=== PATIENT | female | born 1955 | race American Indian/Alaskan Native ===

== ENCOUNTER 2020-04-02 15:00 | Inpatient (IN) | payer MEDICARE ==
--- NOTE | 2020-04-02 16:09 | History and Physical Report ---
GP History & Physical - History of Present Illness Date of admission: 04/02/20 Date of Examination: 04/02/20 Reason for Admission: Danger to self History of Present Illness: Per ED Provider: Patient is 64 years old female with history of bipolar disorder, diabetes, hypertension and hypothyroidism. Patient presented to the ER via EMS from home for evaluation of suicidal thoughts. Patient stated that she is going through a lot recently. Patient stated that she is dealing with chronic pain mainly in the back and stated that she is having a bulging disc and she has been taking methadone for many years and now they changed her to fentanyl and they supposed to do surgery on her because she has an open claim Medicaid refused to pay her surgery and she has been dismissed. Patient stated that she lost 2 family members to COVID-19 recently. Patient stated that her plan is to cut her abdomen open. Patient admitted that she is having auditory hallucination and the voices asking her to cut her abdomen. She also stated that she is seeing her abdomen open. Patient denied any homicidal ideation. Per [facility]: Pt. is a 64-year-old female who presents to Emergency Department for [facility]. Pt. has a history of Bipolar Disorder and depression. Pt. reports having Suicidal thoughts with a plan to cut self-due to experiencing a lot of back pain. Per pt., insurance will not pay for her to go to the pain clinic and she is suffering. According to pt., she is having command hallucinations and confusion. Pt. admits that the voices tell me to do things. cut myself again. Itll be all over. Pts daughter reports that pt. is displaying Depressive episodes, hopelessness, isolation, excessive crying, and change in mood. Pt. reports grieving the loss of two family members due to COVID19 and having a difficult time coping. Reports no current psychiatrist and therapist. Patient was discharged from [place] approximately one month ago and has been inconsistent with medi cations. Pt. has failed to follow up with outpatient recommendations. Pt. reports one previous suicide attempt via cutting hand. During assessment, pt. presented as being alert and oriented (self, situation, date) with impaired memory. Pt. presents as a poor historian with some information, therefore, dgt was contacted for COL information. PSYCH HPI Patient is a 64 year single Female with past psychiatric history of Depression and separation of anxiety who resides with family and presented to the ED with complaints of SI. Patients history of nerve problems, bulging disc and pinged nerve that has been causing her a lot of pain and discomfort and her outpt psychiatrist had told her that the pain she is experiencing phsyically could cross over to affect her mentally. Now patient reports feeling suicidal and not wanting to live anymore cos of being in so much discomfort. She endorses not being able to get appropriate care for the pain management due to medicaid insurance issues. PAST PSYCHIATRIC HISTORY Diagnoses: Bipolar and Depression. Suicide attempts or Self-harm behavior: denies Prior psychiatric hospitalizations: Yes Substance Abuse history: Denies Previous psychiatric medications tried: yes Outpatient treatment: yes PAST MEDICAL HISTORY: Sciatica, bulging disc, DM, HTN Family Psychiatric History: None reported or documented SOCIAL HISTORY Marital Status: Single Living Arrangements: with family Employment Status: Retired Access to guns/weapons: none reported Education: College degree History of Abuse: none reported Legal History: none reported REVIEW OF SYSTEMS Constitutional: Negative for weight loss ENT: Negative for stridor Respiratory: Negative for cough or hemoptysis All other systems reviewed and are negative MENTAL STATUS EXAMINATION General Appearance and Behavior: Age appropriate, good hygiene, wearing appropriate clothes, lying in bed, good eye contact, cooperative with questioning. Cooperation: Participating/engaged Psychomotor Behavior: unremarkable and within normal limits Mood: Depressed Affect and affective range: sad Thought Process: Fluent/Logical Thought Content: Within reality Speech: Normal volume, Regular rate and rhythm Intellectual Functioning: Average Suicidal Ideation: SI Homicidal Ideation: Denies HI Impulse Control: impaired Insight and Judgment: Normal insight and judgment Memory: Normal Attention: Normal Orientation: Alert, oriented Assessment and Plan - Psychiatric problem (1) MDD (major depressive disorder) Current Visit: Yes Status: Acute Treatment Plan Cymbalta started at 60mg QDAY, will help with neuralgia Patient will be admitted for inpatient psychiatric evaluation, medication adjustment and close monitoring The patient's behavior, mood, sleep and appetite will be closely monitored. Patient will be enrolled in individual and group therapeutic sessions and encouraged to attend. Patient will be provided with a safe and structured environment. Patient's physical health needs will be addressed by the Hospitalist. Hospitalist Consulted Labs including CBC, CMP, Lipid profile and Hemoglobin A1C ordered Social Assessment will be completed and the Inside Sales Advertising Executive will work with patient and family to ensure a suitable and safe disposition Medication adjustment will be made as clinically indicated Usual Wellness Confucianist/Preservation: - Start Trazodone 50 mg po QHS & 50 mg po QHS PRN between 10 PM & 2 AM for insomnia - Start Melatonin 5 mg po QHS to promote circadian rhythm - Start [place]-3 for brain health, reduce impulsivity, and as adjunctive treatment for mood disorder, continue upon discharge given overall benefits. - Start B1 prophylaxis with 200 mg po for 5 days The patient agreed on the treatment plan, understood the risk, benefit, alternative treatment, potential consequence of no treatment, and gave informed consent. Initial Certification Inpatient psych services: I certify that the inpatient psychiatric services are required for treatment that could reasonably be expected to improve the patient's condition. Estimated days: 7 Post hospital care: primary care provider, psychiatric provider Legal Status: Voluntary Reaction to Hospitalization: Accepting Physician Certification - Certification Statement Physician Certification Statement: This is an acknowledgement statement that CRISTHIAN GOODWIN is a 64 year old F who requires inpatient psychiatric admission for treatment which could reasonably be expected to improve the patient's condition for Estimated period of time patient will need to remain in the hospital: [ ] Plan for post-hospital care: [ ]
[2020-04-02] MEDS: ACETAMINOPHEN 325 MG TAB PO PRN (22:02)
[2020-04-02] MEDS: MELATONIN 5 MG TAB PO PRN (22:02)
[2020-04-02] MEDS: OMEGA-3 FATTY ACIDS/FISH OIL 1 GRAM CAP PO SCH (22:02)
[2020-04-02] MEDS: traZODone 50 MG TAB PO SCH (22:03)
--- NOTE | 2020-04-03 07:44 | Progress Note ---
Subjective Date of service: 04/03/20 Principal diagnosis: Major Depressive Disorder Subjective Comment: The patient's medical record was reviewed and the patient's progress was discussed with the nursing staff. The nurse note states she reports AH to harm herself by cutting stomach. She was mildly anxious but oriented to her medications and her self care. During my interview with the patient today, she is lying down. She is easily arouses. She is a/o x 3. The patient is calm and cooperative. She makes minimum eye contact. She verbalizes being "depressed and anxious." The patient also verbalizes suicidal thoughts, but denies a plan. She denies hallucinations of any kind during the interview. REVIEW OF SYSTEMS Constitutional: Negative for weight loss ENT: Negative for stridor Respiratory: Negative for cough or hemoptysis All other systems reviewed and are negative MENTAL STATUS EXAMINATION General Appearance; Dressed appropriately Behavior: Calm and cooperative. Poor eye contact Mood: Depressed and anxious Affect and affective range: sad Thought Process: Fluent/Logical Thought Content: Within reality Speech: Normal volume, Regular rate and rhythm Suicidal Ideation: SI Homicidal Ideation: Denies HI Hallucinations: Denies Delusions: None elicited Insight and Judgment: Limited Memory/Cognition: Normal Attention: Normal Orientation: Alert, oriented Assessment (1) MDD (major depressive disorder) Current Visit: Yes Status: Acute Treatment Plan Patient will be admitted for inpatient psychiatric evaluation, medication adjustment and close monitoring The patient's behavior, mood, sleep and appetite will be closely monitored. Patient will be enrolled in individual and group therapeutic sessions and encouraged to attend. Patient will be provided with a safe and structured environment. Patient's physical health needs will be addressed by the Hospitalist. Hospitalist Consulted Labs including CBC, CMP, Lipid profile and Hemoglobin A1C ordered Social Assessment will be completed and the Assistant Hall Director will work with patient and family to ensure a suitable and safe disposition Medication adjustment will be made as clinically indicated Start Abilify 5mg po daily to control hallucinations and treat depression Start Vistaril 25mg q6h prn anxiety Usual Wellness Anabaptism/Preservation: - Start Trazodone 50 mg po QHS & 50 mg po QHS PRN between 10 PM & 2 AM for insomnia - Start Melatonin 5 mg po QHS to promote circadian rhythm - Start [place]-3 for brain health, reduce impulsivity, and as adjunctive treatment for mood disorder, continue upon discharge given overall benefits. - Start B1 prophylaxis with 200 mg po for 5 days The patient agreed on the treatment plan, understood the risk, benefit, alternative treatment, potential consequence of no treatment, and gave informed consent. Estimated days: 6 Post hospital care: primary care provider, psychiatric provider Medications and Allergies Allergies Allergy/AdvReac Type Severity Reaction Status Date / Time azithromycin Allergy Itching Verified 04/02/20 17:24 ciprofloxacin Allergy Itching Verified 04/02/20 17:46 clindamycin Allergy Itching Verified 04/02/20 17:24 ketorolac Allergy Itching Verified 04/02/20 17:47 lisinopril Allergy Hives Verified 04/02/20 17:24 morphine Allergy Itching Verified 04/02/20 17:24 Penicillins Allergy Hives Verified 04/02/20 17:24 pentazocine Allergy Itching Verified 04/02/20 17:24 pregabalin Allergy Itching Verified 04/02/20 17:43 sulfamethoxazole Allergy Itching Verified 04/02/20 17:44 trimethoprim Allergy Itching Verified 04/02/20 17:45 Active Meds: Active Medications Acetaminophen (Tylenol) 650 mg PO Q4H PRN PRN Reason: Pain, Mild (1-3) Last Admin: 04/02/20 22:02 Dose: 650 mg Documented by: Duloxetine HCl (Cymbalta) 60 mg PO QDAY [facility] Fish Oil (Fish Oil) 2,000 mg PO BID [facility] Last Admin: 04/02/20 22:02 Dose: 2,000 mg Documented by: Melatonin (Melatonin) 5 mg PO QHS PRN PRN Reason: Sleep Last Admin: 04/02/20 22:02 Dose: 5 mg Documented by: Trazodone HCl (Desyrel) 50 mg PO QHS [facility] Last Admin: 04/02/20 22:03 Dose: 50 mg Documented by: Results - Results Labs/Vitals: Laboratory Last Values POC Glucose 194 (70-105) H 04/02/20 23:18 Last Vital Signs Temp 99.0 F 04/02/20 20:00 Pulse 90 04/02/20 20:00 Resp 20 04/02/20 20:00 BP 144/98 04/02/20 20:00 Pulse Ox 97 04/02/20 20:00
[2020-04-03] MEDS: DULoxetine 30 MG CAP PO SCH (09:19)
[2020-04-03] MEDS: OMEGA-3 FATTY ACIDS/FISH OIL 1 GRAM CAP PO SCH ×2 (09:20→21:25)
[2020-04-03] MEDS: ARIPiprazole 5 MG TAB PO SCH (09:20)
--- NOTE | 2020-04-03 09:44 | Progress Note ---
Subjective - Reason for Consult Consult date: 04/03/20 Reason for consult: AMS - Chief Complaint Chief complaint: REVIEW OF SYSTEMS Constitutional: Negative for weight loss ENT: Negative for stridor Respiratory: Negative for cough or hemoptysis All other systems reviewed and are negative MENTAL STATUS EXAMINATION General Appearance; Dressed appropriately Behavior: Calm and cooperative. Poor eye contact Mood: Depressed and anxious Affect and affective range: sad Thought Process: Fluent/Logical Thought Content: Within reality Speech: Normal volume, Regular rate and rhythm Suicidal Ideation: SI Homicidal Ideation: Denies HI Hallucinations: Denies Delusions: None elicited Insight and Judgment: Limited Memory/Cognition: Normal Attention: Normal Orientation: Alert, oriented Assessment (1) MDD (major depressive disorder) Current Visit: Yes Status: Acute Mental Status Exam - Vital signs Last Vital Signs Temp 99.0 F 04/02/20 20:00 Pulse 90 04/02/20 20:00 Resp 20 04/02/20 20:00 BP 144/98 04/02/20 20:00 Pulse Ox 97 04/02/20 20:00
[2020-04-03 12:34] LABS: Basophils # (Auto) 0.1 K/mm3 (0.0-0.1); Basophils % (Auto) 1.1 % (0.0-1.8); Eosinophils # (Auto) 0.1 K/mm3 (0.0-0.4); Eosinophils % (Auto) 1.2 % (0.0-4.3); Hematocrit 42.7 % (30.3-42.9); Hemoglobin 13.7 gm/dl (10.1-14.3); Lymphocytes # (Auto) 2.6 K/mm3 (1.2-5.4); Lymphocytes % (Auto) 29.5 % (13.4-35.0); Mean Corpuscular HGB Conc 32 % (30-34); Mean Corpuscular Volume 82 fl (79-97); Monocytes # (Auto) 0.6 K/mm3 (0.0-0.8); Monocytes % (Auto) 7.2 % (0.0-7.3); Red Blood Count 5.24 M/mm3 (3.65-5.03); Red Cell Distribution Width 14.9 % (13.2-15.2)
[2020-04-03 13:16] LABS: Platelet Count 170 K/mm3 (140-440)
[2020-04-03] MEDS: ACETAMINOPHEN 325 MG TAB PO PRN ×2 (13:20→21:24)
--- NOTE | 2020-04-03 13:26 | Consultation ---
History of Present Illness - Reason for Consult Consult date: 04/03/20 Requesting physician: RICARDA SUGGS - History of Present Illness Patient is a 64-year-old female with a history of diabetes hypertension bipolar disorder and depression presents to psychiatric facility with suicidal thoughts hallucinations. Patient had some social isolation issues secondary to the COVID-19 pandemic. At present patient answering questions appropriately sitting at the table. Explained to her that I will see her to evaluate her diabetes and her hypertension. Patient is well aware of the medications [facility] Gluc[facility] and the doses. Patient is aware her sugars have been a little high lately. States that stress is caused her sugars to be elevated. Patient denies any episodes of hypoglycemia. States that prior to this she has been fairly well controlled as well as fairly well compliant with medical management. Patient also gives a history of hypothyroidism but no symptoms of hypo-or hyperthyroidism. Past History Past Medical History: diabetes, hypertension, hypothyroidism, migraines, other (Chronic back pain.). denies: acute DE, atrial fib, arrhythmia, anemia, arthritis, CAD, cancer, COPD, dialysis, DVT, ESRD, GERD, heart failure, hepatitis, HIV/AIDS, liver disease, PVD, pulmonary embolism Past Surgical History: No surgical history Social history: single, lives with family. denies: smoking, alcohol abuse Family history: no significant family history Medications and Allergies Allergies Allergy/AdvReac Type Severity Reaction Status Date / Time azithromycin Allergy Itching Verified 04/02/20 17:24 ciprofloxacin Allergy Itching Verified 04/02/20 17:46 clindamycin Allergy Itching Verified 04/02/20 17:24 ketorolac Allergy Itching Verified 04/02/20 17:47 lisinopril Allergy Hives Verified 04/02/20 17:24 morphine Allergy Itching Verified 04/02/20 17:24 Penicillins Allergy Hives Verified 04/02/20 17:24 pentazocine Allergy Itching Verified 04/02/20 17:24 pregabalin Allergy Itching Verified 04/02/20 17:43 sulfamethoxazole Allergy Itching Verified 04/02/20 17:44 trimethoprim Allergy Itching Verified 04/02/20 17:45 Home Medications Medication Instructions Recorded Confirmed Last Taken Type Amlodipine Besylate [Norvasc] 5 mg PO DAILY 04/03/20 04/03/20 Unknown History Levothyroxine Sodium [Synthroid] 200 mcg PO DAILY 04/03/20 04/03/20 Unknown History Metoprolol Xl [Metoprolol 25 mg PO QDAY 04/03/20 04/03/20 Unknown History SUCCINATE ER TAB] QUEtiapine [SEROquel] 25 mg PO DAILY 04/03/20 04/03/20 Unknown History QUEtiapine [SEROquel] 125 mg PO HS 04/03/20 04/03/20 Unknown History glyBURIDE [Diabeta] 5 mg PO BID 04/03/20 04/03/20 Unknown History hydrOXYzine HCL [Atarax] 25 mg PO Q6HR PRN 04/03/20 04/03/20 Unknown History Active Meds: Active Medications Acetaminophen (Tylenol) 650 mg PO Q4H PRN PRN Reason: Pain, Mild (1-3) Last Admin: 04/03/20 13:20 Dose: 650 mg Documented by: Aripiprazole (Aripiprazole) 5 mg PO QDAY [facility] Last Admin: 04/03/20 09:20 Dose: 5 mg Documented by: Duloxetine HCl (Cymbalta) 60 mg PO QDAY [facility] Last Admin: 04/03/20 09:19 Dose: 60 mg Documented by: Fish Oil (Fish Oil) 2,000 mg PO BID [facility] Last Admin: 04/03/20 09:20 Dose: 2,000 mg Documented by: Hydroxyzine Pamoate (Vistaril) 25 mg PO Q6H PRN PRN Reason: Anxiety Melatonin (Melatonin) 5 mg PO QHS PRN PRN Reason: Sleep Last Admin: 04/02/20 22:02 Dose: 5 mg Documented by: Trazodone HCl (Desyrel) 50 mg PO QHS [facility] Last Admin: 04/02/20 22:03 Dose: 50 mg Documented by: Review of Systems Constitutional: fatigue, no weight loss, no weight gain, no fever, no chills, no sweats, no night sweats, no anorexia, no weakness, no malaise, no lethargy, no chronic headaches, no poor appetite, no daytime sleepiness Ears, nose, mouth and throat: no decreased hearing, no nasal discharge, no dental pain, no dysphagia, no sore throat, no swelling in mouth, no headache, no neck fullness/pressure Cardiovascular: no palpitations, no rapid/irregular heart beat, no edema, no lightheadedness, no shortness of breath, no dyspnea on exertion, no paroxysmal nocturnal dyspnea, no leg edema, no decreased exercise tolerance Respiratory: no excessive sputum, no shortness of breath Gastrointestinal: no diarrhea, no hematemesis, no lactose intolerance Genitourinary Female: no menorrhagia, no urgency, no decreased libido, no mood problems, no difficulties conceiving Menstruation: no premenarcheal, no ammenorrhea on BC, no period normal, no period spotting, no cycle > 35 days, no postmenopausal Rectal: no bleeding, no hemorrhoids, no discharge Musculoskeletal: low back pain, shooting leg pain, other (Chronic low back pain. States was on pain clinic.), no neck stiffness, no shooting arm pain, no leg numbness/tingling, no muscle cramps, no limitation of motion, no prior amputations Neurological: numbness, no head injury, no paralysis, no parathesias, no tingling, no syncope, no convulsions Psychiatric: anxiety, memory loss, change in sleep habits, insomnia, change in appetite, suicidal ideation, hopelessness Endocrine: no heat intolerance, no flushing, no weight change, no proptosis, no recent glucocorticoid use Exam - Constitutional Vitals: Temp Pulse Resp BP Pulse Ox 99.0 F 90 18 144/98 97 04/02/20 20:00 04/02/20 20:00 04/03/20 13:20 04/02/20 20:00 04/02/20 20:00 General appearance: Present: no acute distress, well-nourished - EENT Eyes: Present: PERRL ENT: hearing intact, clear oral mucosa - Neck Neck: Present: supple, normal ROM - Respiratory Respiratory effort: normal Respiratory: bilateral: CTA - Cardiovascular Heart Sounds: Present: S1 & S2. Absent: rub, click - Extremities Extremities: pulses symmetrical, No edema Peripheral Pulses: within normal limits - Abdominal General gastrointestinal: Present: soft, non-tender, non-distended, normal bowel sounds Female genitourinary: Present: normal - Integumentary Integumentary: Present: clear, warm, dry - Musculoskeletal Musculoskeletal: gait normal, strength equal bilaterally - Psychiatric Psychiatric: appropriate mood/affect, intact judgment & insight - Neurologic Neurologic: CNII-XII intact, moves all extremities Results - Labs CBC & Chem 7: 04/03/20 11:59 Labs: Abnormal lab results 04/02/20 04/03/20 04/03/20 Range/Units 23:18 11:52 11:59 RBC 5.24 H (3.65-5.03) M/mm3 MCH 26 L (28-32) pg POC Glucose 194 H 279 H (70-105) Hemoglobin A1c (4-6) % 04/03/20 Range/Units 11:59 RBC (3.65-5.03) M/mm3 MCH (28-32) pg POC Glucose (70-105) Hemoglobin A1c 10.9 H (4-6) % Assessment and Plan - Patient Problems (1) Diabetes 1.5, managed as type 1 Current Visit: Yes Status: Acute Plan to address problem: Patient with diabetes takes Trulicity. Will start patient on Accu-Cheks once daily. Unlikely will require sliding scale at this particular time. Will start patient back on glipizide 5 mg daily. Will hold Trulicity for now since it is once a week. (2) Hypertension Current Visit: Yes Status: Acute Plan to address problem: Patient fair control of blood pressure will restart lisinopril 5 mg daily. (3) Hypothyroidism (acquired) Current Visit: Yes Status: Acute Plan to address problem: Patient currently on Synthroid 50 mcg. Will reinitiate medical management. (4) Obesity (BMI 35.0-39.9 without comorbidity) Current Visit: Yes Status: Acute Plan to address problem: Did discuss but poor candidate to explain behavior modifications at this time. (5) Depression Current Visit: Yes Status: Acute Plan to address problem: Patient started on management per mental health.
[2020-04-03] MEDS ORDERED: hydrOXYzine HCL 25 MG TAB PO PRN (13:31)
[2020-04-03] MEDS ORDERED: glyBURIDE 5 MG TAB PO SCH (13:45)
[2020-04-03 14:18] LABS: Alanine Aminotransferase 55 units/L (7-56); Albumin 4.3 g/dL (3.9-5); BUN/Creatinine Ratio 14; Blood Urea Nitrogen 13 mg/dL (7-17); Calcium 9.9 mg/dL (8.4-10.2); HDL Cholesterol 58 mg/dL (40-59); Hemolysis Index 189; LDL Cholesterol,Direct 135 mg/dL (50-130)
[2020-04-03] MEDS: hydrOXYzine PAMOATE 25 MG CAP PO PRN (21:24)
[2020-04-03] MEDS: traZODone 50 MG TAB PO SCH (21:27)
[2020-04-04] MEDS ORDERED: LEVOTHYROXINE 100 MCG INJ IV SCH (06:00)
[2020-04-04] MEDS: LEVOTHYROXINE 100 MCG TAB PO SCH (07:05)
--- NOTE | 2020-04-04 07:54 | Progress Note ---
Subjective Date of service: 04/04/20 Principal diagnosis: Major Depressive Disorder Subjective Comment: The patient's medical record was reviewed and the patient's progress was discussed with the nursing staff. The nurse note states she was calm and cooperative with staff and interact well with peers. She was medications compliant, participate fully in groups. She verbalized being depressed and suicidal thoughts with no plan, she denies HI and avh. During my interview with the patient today, she is sitting in the dayroom. She is a/o x 3. The patient denies SI at present, but states late last night she was. She denies hallucinations of any kind. She describes her mood as "better." She is telling me what meds she takes and doesn't take. The patient states she doesn't take trazodone. She is also asking about her glyburide dose, pain med and protonix. Reason for continued inpatient treatment: The patient continues to have SI at times with most recent being late last night. REVIEW OF SYSTEMS Constitutional: Negative for weight loss ENT: Negative for stridor Respiratory: Negative for cough or hemoptysis All other systems reviewed and are negative MENTAL STATUS EXAMINATION General Appearance; Dressed appropriately Behavior: Calm and cooperative. Good eye contact Mood: Better Affect and affective range: Congruent with stated mood Thought Process: Fluent/Logical Thought Content: Within reality Speech: Normal volume, Regular rate and rhythm Suicidal Ideation: Denies at present, but last night Homicidal Ideation: Denies HI Hallucinations: Denies Delusions: None elicited Insight and Judgment: Limited Memory/Cognition: Normal Attention: Normal Orientation: Alert, oriented Assessment (1) MDD (major depressive disorder) Current Visit: Yes Status: Acute Treatment Plan Patient will be admitted for inpatient psychiatric evaluation, medication adjustment and close monitoring The patient's behavior, mood, sleep and appetite will be closely monitored. Patient will be enrolled in individual and group therapeutic sessions and encouraged to attend. Patient will be provided with a safe and structured environment. Patient's physical health needs will be addressed by the Hospitalist. Hospitalist Consulted Labs including CBC, CMP, Lipid profile and Hemoglobin A1C ordered Social Assessment will be completed and the Resource Engineer will work with patient and family to ensure a suitable and safe disposition Medication adjustment will be made as clinically indicated Started home dose of Seroquel 100mg po qhs D/C trazodone Started home protonix 40mg po daily, and Glyburide 5mg po BID Usual Wellness Spiritism/Preservation: - Start Trazodone 50 mg po QHS & 50 mg po QHS PRN between 10 PM & 2 AM for insomnia - Start Melatonin 5 mg po QHS to promote circadian rhythm - Start [place]-3 for brain health, reduce impulsivity, and as adjunctive treatment for mood disorder, continue upon discharge given overall benefits. - Start B1 prophylaxis with 200 mg po for 5 days The patient agreed on the treatment plan, understood the risk, benefit, alternative treatment, potential consequence of no treatment, and gave informed consent. Estimated days: 4 Post hospital care: primary care provider, psychiatric provider Medications and Allergies Allergies Allergy/AdvReac Type Severity Reaction Status Date / Time azithromycin Allergy Itching Verified 04/02/20 17:24 ciprofloxacin Allergy Itching Verified 04/02/20 17:46 clindamycin Allergy Itching Verified 04/02/20 17:24 ketorolac Allergy Itching Verified 04/02/20 17:47 lisinopril Allergy Hives Verified 04/02/20 17:24 morphine Allergy Itching Verified 04/02/20 17:24 Penicillins Allergy Hives Verified 04/02/20 17:24 pentazocine Allergy Itching Verified 04/02/20 17:24 pregabalin Allergy Itching Verified 04/02/20 17:43 sulfamethoxazole Allergy Itching Verified 04/02/20 17:44 trimethoprim Allergy Itching Verified 04/02/20 17:45 Home Medications Medication Instructions Recorded Confirmed Last Taken Type Amlodipine Besylate [Norvasc] 5 mg PO DAILY 04/03/20 04/03/20 Unknown History Levothyroxine Sodium [Synthroid] 200 mcg PO DAILY 04/03/20 04/03/20 Unknown History Metoprolol Xl [Metoprolol 25 mg PO QDAY 04/03/20 04/03/20 Unknown History SUCCINATE ER TAB] QUEtiapine [SEROquel] 25 mg PO DAILY 04/03/20 04/03/20 Unknown History QUEtiapine [SEROquel] 125 mg PO HS 04/03/20 04/03/20 Unknown History glyBURIDE [Diabeta] 5 mg PO BID 04/03/20 04/03/20 Unknown History hydrOXYzine HCL [Atarax] 25 mg PO Q6HR PRN 04/03/20 04/03/20 Unknown History Active Meds: Active Medications Acetaminophen (Tylenol) 650 mg PO Q4H PRN PRN Reason: Pain, Mild (1-3) Last Admin: 04/03/20 21:24 Dose: 650 mg Documented by: Amlodipine Besylate (Amlodipine) 5 mg PO DAILY [facility] Aripiprazole (Aripiprazole) 5 mg PO QDAY [facility] Last Admin: 04/03/20 09:20 Dose: 5 mg Documented by: Duloxetine HCl (Cymbalta) 60 mg PO QDAY [facility] Last Admin: 04/03/20 09:19 Dose: 60 mg Documented by: Fish Oil (Fish Oil) 2,000 mg PO BID [facility] Last Admin: 04/03/20 21:25 Dose: 2,000 mg Documented by: Glyburide (Diabeta) 5 mg PO BID [facility] Hydroxyzine HCl (Atarax) 25 mg PO Q6HR PRN PRN Reason: Itching Hydroxyzine Pamoate (Vistaril) 25 mg PO Q6H PRN PRN Reason: Anxiety Last Admin: 04/03/20 21:24 Dose: 25 mg Documented by: Levothyroxine Sodium (Synthroid) 200 mcg PO DAILY@0600 [facility] Last Admin: 04/04/20 07:05 Dose: 200 mcg Documented by: Melatonin (Melatonin) 5 mg PO QHS PRN PRN Reason: Sleep Last Admin: 04/02/20 22:02 Dose: 5 mg Documented by: Metoprolol Succinate (Metoprolol Xl) 25 mg PO QDAY [facility] Pantoprazole Sodium (Protonix) 40 mg PO QDAY [facility] Quetiapine Fumarate (Seroquel) 125 mg PO [facility] Results - Results Labs/Vitals: Laboratory Last Values WBC 8.9 K/mm3 (4.5-11.0) 04/03/20 11:59 RBC 5.24 M/mm3 (3.65-5.03) H 04/03/20 11:59 Hgb 13.7 gm/dl (10.1-14.3) 04/03/20 11:59 Hct 42.7 % (30.3-42.9) 04/03/20 11:59 MCV 82 fl (79-97) 04/03/20 11:59 MCH 26 pg (28-32) L 04/03/20 11:59 MCHC 32 % (30-34) 04/03/20 11:59 RDW 14.9 % (13.2-15.2) 04/03/20 11:59 Plt Count 170 K/mm3 (140-440) 04/03/20 11:59 Lymph % (Auto) 29.5 % (13.4-35.0) 04/03/20 11:59 [place] % (Auto) 7.2 % (0.0-7.3) 04/03/20 11:59 Eos % (Auto) 1.2 % (0.0-4.3) 04/03/20 11:59 Baso % (Auto) 1.1 % (0.0-1.8) 04/03/20 11:59 Lymph # 2.6 K/mm3 (1.2-5.4) 04/03/20 11:59 [place] # 0.6 K/mm3 (0.0-0.8) 04/03/20 11:59 Eos # 0.1 K/mm3 (0.0-0.4) 04/03/20 11:59 Baso # 0.1 K/mm3 (0.0-0.1) 04/03/20 11:59 Seg Neutrophils % 61.0 % (40.0-70.0) 04/03/20 11:59 Seg Neutrophils # 5.4 K/mm3 (1.8-7.7) 04/03/20 11:59 Sodium 139 mmol/L (137-145) 04/03/20 11:59 Potassium 5.3 mmol/L (3.6-5.0) H 04/03/20 11:59 Chloride 96.8 mmol/L (98-107) L 04/03/20 11:59 Carbon Dioxide 17 mmol/L (22-30) L 04/03/20 11:59 Anion Gap 31 mmol/L 04/03/20 11:59 BUN 13 mg/dL (7-17) 04/03/20 11:59 Creatinine 0.9 mg/dL (0.6-1.2) 04/03/20 11:59 Estimated GFR > 60 ml/min 04/03/20 11:59 BUN/Creatinine Ratio 14 % 04/03/20 11:59 Glucose 315 mg/dL (65-100) H 04/03/20 11:59 POC Glucose 286 (70-105) H 04/03/20 20:09 Hemoglobin A1c 10.9 % (4-6) H 04/03/20 11:59 Calcium 9.9 mg/dL (8.4-10.2) 04/03/20 11:59 Total Bilirubin 0.40 mg/dL (0.1-1.2) 04/03/20 11:59 AST 79 units/L (5-40) H 04/03/20 11:59 ALT 55 units/L (7-56) 04/03/20 11:59 Alkaline Phosphatase 175 units/L (35-129) H 04/03/20 11:59 Total Protein 9.3 g/dL (6.3-8.2) H 04/03/20 11:59 Albumin 4.3 g/dL (3.9-5) 04/03/20 11:59 Albumin/Globulin Ratio 0.9 % 04/03/20 11:59 Triglycerides 181 mg/dL (2-149) H 04/03/20 11:59 Cholesterol 209 mg/dL (50-199) H 04/03/20 11:59 LDL Cholesterol Direct 135 mg/dL (50-130) H 04/03/20 11:59 HDL Cholesterol 58 mg/dL (40-59) 04/03/20 11:59 Cholesterol/HDL Ratio 3.60 % 04/03/20 11:59 TSH 1.670 mlU/mL (0.270-4.200) 04/03/20 11:59 Last Vital Signs Temp 98.5 F 04/03/20 19:28 Pulse 95 H 04/03/20 19:28 Resp 18 04/03/20 19:28 BP 129/103 04/03/20 19:28 Pulse Ox 97 04/03/20 19:28
[2020-04-04] MEDS: DULoxetine 30 MG CAP PO SCH (09:53)
[2020-04-04] MEDS: PANTOPRAZOLE 40 MG TAB PO SCH (09:53)
[2020-04-04] MEDS: OMEGA-3 FATTY ACIDS/FISH OIL 1 GRAM CAP PO SCH ×2 (09:53→21:15)
[2020-04-04] MEDS: ARIPiprazole 5 MG TAB PO SCH (09:53)
[2020-04-04] MEDS: amLODIPine 5 MG TAB PO SCH (09:54)
[2020-04-04] MEDS: ACETAMINOPHEN 325 MG TAB PO PRN ×2 (09:55→17:24)
[2020-04-04] MEDS ORDERED: LEVOTHYROXINE SODIUM 200 MCG PO SCH (10:00)
[2020-04-04] MEDS: hydrOXYzine PAMOATE 25 MG CAP PO PRN (10:34)
[2020-04-04] MEDS: glyBURIDE 5 MG TAB PO SCH ×2 (10:55→21:15)
[2020-04-04] MEDS: METOPROLOL SUCCINATE XL 25 MG TAB PO SCH (10:55)
--- NOTE | 2020-04-04 12:14 | Progress Note ---
Assessment and Plan - Patient Problems (1) Diabetes 1.5, managed as type 1 Current Visit: Yes Status: Acute Plan to address problem: Patient blood sugar remains suboptimally controlled. Placed her back on her home dose of glyburide. Will add metformin today. Patient's blood sugar most likely suboptimal control because A1c was 10. We will continue sliding scale as well as add metformin 1000 mg daily. (2) Hypertension Current Visit: Yes Status: Acute Plan to address problem: Blood pressure appears to be fair but suboptimal control with lisinopril. Patient just started back on medications yesterday. If remains suboptimal will increase lisinopril from 20 to 40 mg. (3) Hypothyroidism (acquired) Current Visit: Yes Status: Acute Plan to address problem: Patient currently on Synthroid 50 mcg. Will reinitiate medical management. (4) Obesity (BMI 35.0-39.9 without comorbidity) Current Visit: Yes Status: Acute Plan to address problem: Did discuss but poor candidate to explain behavior modifications at this time. (5) Depression Current Visit: Yes Status: Acute Plan to address problem: Patient started on management per mental health. (6) Chronic pain Current Visit: Yes Status: Acute Plan to address problem: Patient actuall give history of going to pain management. She has pretty detailed history. Will attempt to treat patient's pain as this may help with her anxiety and depression. Patient states she is depressed because of pain chronic pain that is been suboptimally treated. Will start patient on oxycodone 3 times a day as needed (7) Chronic UTI Current Visit: Yes Status: Acute Plan to address problem: Patient was on Macrobid prophylaxis. Will reinitiate Macrobid. Subjective Date of service: 04/04/20 Principal diagnosis: Major Depressive Disorder hypertension diabetes chronic frank n. Interval history: Patient states today mentally she feels better. Much more alert. Able to carry on a conversation. Patient main concern now is her chronic pain. Patient states that this pain makes her anxiety worse. Gives a history that she was on methadone and no longer pay for methadone and then was on fentanyl patch. Objective - Constitutional Vitals: Vital Signs - 12hr 04/04/20 04/04/20 09:54 10:55 Pulse Rate 106 H 106 H Blood Pressure 143/88 143/88 General appearance: Present: no acute distress, well-nourished - EENT Eyes: PERRL, EOM intact ENT: hearing intact, clear oral mucosa Ears: bilateral: normal - Neck Neck: supple, normal ROM - Respiratory Respiratory effort: normal Respiratory: bilateral: CTA - Breasts Breasts: normal - Cardiovascular Rhythm: regular Heart Sounds: Present: S1 & S2. Absent: gallop, rub Extremities: pulses intact, No edema, normal color, Full ROM - Gastrointestinal General gastrointestinal: Present: soft, non-tender, non-distended, normal bowel sounds - Genitourinary Female genitourinary: normal - Integumentary Integumentary: clear, warm, dry - Musculoskeletal Musculoskeletal: 1, strength equal bilaterally - Neurologic Neurologic: moves all extremities - Psychiatric Psychiatric: memory intact, appropriate mood/affect, intact judgment & insight - Labs CBC & Chem 7: 04/03/20 11:59 04/03/20 11:59 Labs: Abnormal lab results 04/03/20 04/03/20 04/03/20 Range/Units 11:59 11:59 11:59 RBC 5.24 H (3.65-5.03) M/mm3 MCH 26 L (28-32) pg Potassium 5.3 H (3.6-5.0) mmol/L Chloride 96.8 L (98-107) mmol/L Carbon Dioxide 17 L (22-30) mmol/L Glucose 315 H (65-100) mg/dL POC Glucose (70-105) Hemoglobin A1c 10.9 H (4-6) % AST 79 H (5-40) units/L Alkaline Phosphatase 175 H (35-129) units/L Total Protein 9.3 H (6.3-8.2) g/dL Triglycerides 181 H (2-149) mg/dL Cholesterol 209 H (50-199) mg/dL LDL Cholesterol Direct 135 H (50-130) mg/dL 04/03/20 04/03/20 04/04/20 Range/Units 16:34 20:09 08:08 RBC (3.65-5.03) M/mm3 MCH (28-32) pg Potassium (3.6-5.0) mmol/L Chloride (98-107) mmol/L Carbon Dioxide (22-30) mmol/L Glucose (65-100) mg/dL POC Glucose 296 H 286 H 241 H (70-105) Hemoglobin A1c (4-6) % AST (5-40) units/L Alkaline Phosphatase (35-129) units/L Total Protein (6.3-8.2) g/dL Triglycerides (2-149) mg/dL Cholesterol (50-199) mg/dL LDL Cholesterol Direct (50-130) mg/dL 04/04/20 Range/Units 12:07 RBC (3.65-5.03) M/mm3 MCH (28-32) pg Potassium (3.6-5.0) mmol/L Chloride (98-107) mmol/L Carbon Dioxide (22-30) mmol/L Glucose (65-100) mg/dL POC Glucose 259 H (70-105) Hemoglobin A1c (4-6) % AST (5-40) units/L Alkaline Phosphatase (35-129) units/L Total Protein (6.3-8.2) g/dL Triglycerides (2-149) mg/dL Cholesterol (50-199) mg/dL LDL Cholesterol Direct (50-130) mg/dL
[2020-04-04] MEDS: NITROFURANTOIN MONOHYD/M-CRYST 100 MG CAP PO SCH ×2 (12:30→21:15)
[2020-04-04] MEDS: oxyCODONE /ACETAMINOPHEN 5-325MG TAB PO PRN ×2 (12:30→20:04)
[2020-04-04] MEDS: metFORMIN XR 500MG TAB PO SCH (12:31)
[2020-04-04] MEDS: MELATONIN 5 MG TAB PO PRN (20:37)
[2020-04-04] MEDS: QUEtiapine 25 MG TAB PO SCH (21:15)
[2020-04-05] MEDS: LEVOTHYROXINE 100 MCG TAB PO SCH (05:24)
--- NOTE | 2020-04-05 08:59 | Progress Note ---
Subjective Date of service: 04/05/20 Principal diagnosis: Major Depressive Disorder hypertension diabetes chronic pain. Subjective Comment: The patient's medical record was reviewed and the patient's progress was discussed with the nursing staff. During my interview with the patient today, she is sitting in the dayroom. She is a/o x 3. She is calm and cooperative. She is pleasant. She describes her mood as "pretty good at the moment." The patient says she's been experiencing some tremors of her hand. She holds her hands up to show me. She denies SI/HI at present, but still states "they seem to come and go." She denies hallucinations of any kind. Reason for continued inpatient treatment: The patient has improved, but still suicidal thoughts on and off. Will continue to stabilize and plan for a safe discharge. REVIEW OF SYSTEMS Constitutional: Negative for weight loss ENT: Negative for stridor Respiratory: Negative for cough or hemoptysis All other systems reviewed and are negative MENTAL STATUS EXAMINATION General Appearance; Dressed appropriately Behavior: Calm and cooperative. Good eye contact Mood: "pretty good" Affect and affective range: Congruent with stated mood Thought Process: Fluent/Logical Thought Content: Within reality Speech: Normal volume, Regular rate and rhythm Suicidal Ideation: Denies at present, comes and goes Homicidal Ideation: Denies HI Hallucinations: Denies Delusions: None elicited Insight and Judgment: Limited Memory/Cognition: Normal Attention: Normal Orientation: Alert, oriented Assessment (1) MDD (major depressive disorder) Current Visit: Yes Status: Acute Treatment Plan Patient will be admitted for inpatient psychiatric evaluation, medication adjustment and close monitoring The patient's behavior, mood, sleep and appetite will be closely monitored. Patient will be enrolled in individual and group therapeutic sessions and encouraged to attend. Patient will be provided with a safe and structured environment. Patient's physical health needs will be addressed by the Hospitalist. Hospitalist Consulted Labs including CBC, CMP, Lipid profile and Hemoglobin A1C ordered Social Assessment will be completed and the Sampling Expert will work with patient and family to ensure a suitable and safe disposition Medication adjustment will be made as clinically indicated No changes, continue to stabilize on current regimen Usual Wellness Yazidism/Preservation: - Start Trazodone 50 mg po QHS & 50 mg po QHS PRN between 10 PM & 2 AM for insomnia - Start Melatonin 5 mg po QHS to promote circadian rhythm - Start [place]-3 for brain health, reduce impulsivity, and as adjunctive treatment for mood disorder, continue upon discharge given overall benefits. - Start B1 prophylaxis with 200 mg po for 5 days The patient agreed on the treatment plan, understood the risk, benefit, alternative treatment, potential consequence of no treatment, and gave informed consent. Estimated days: 2 Post hospital care: primary care provider, psychiatric provider Medications and Allergies Allergies Allergy/AdvReac Type Severity Reaction Status Date / Time azithromycin Allergy Itching Verified 04/02/20 17:24 ciprofloxacin Allergy Itching Verified 04/02/20 17:46 clindamycin Allergy Itching Verified 04/02/20 17:24 ketorolac Allergy Itching Verified 04/02/20 17:47 lisinopril Allergy Hives Verified 04/02/20 17:24 morphine Allergy Itching Verified 04/02/20 17:24 Penicillins Allergy Hives Verified 04/02/20 17:24 pentazocine Allergy Itching Verified 04/02/20 17:24 pregabalin Allergy Itching Verified 04/02/20 17:43 sulfamethoxazole Allergy Itching Verified 04/02/20 17:44 trimethoprim Allergy Itching Verified 04/02/20 17:45 Home Medications Medication Instructions Recorded Confirmed Last Taken Type Amlodipine Besylate [Norvasc] 5 mg PO DAILY 04/03/20 04/03/20 Unknown History Levothyroxine Sodium [Synthroid] 200 mcg PO DAILY 04/03/20 04/03/20 Unknown History Metoprolol Xl [Metoprolol 25 mg PO QDAY 04/03/20 04/03/20 Unknown History SUCCINATE ER TAB] QUEtiapine [SEROquel] 25 mg PO DAILY 04/03/20 04/03/20 Unknown History QUEtiapine [SEROquel] 125 mg PO HS 04/03/20 04/03/20 Unknown History glyBURIDE [Diabeta] 5 mg PO BID 04/03/20 04/03/20 Unknown History hydrOXYzine HCL [Atarax] 25 mg PO Q6HR PRN 04/03/20 04/03/20 Unknown History Active Meds: Active Medications Acetaminophen (Tylenol) 650 mg PO Q4H PRN PRN Reason: Pain, Mild (1-3) Last Admin: 04/04/20 17:24 Dose: 650 mg Documented by: Amlodipine Besylate (Amlodipine) 5 mg PO DAILY [facility] Last Admin: 04/04/20 09:54 Dose: 5 mg Documented by: Aripiprazole (Aripiprazole) 5 mg PO QDAY [facility] Last Admin: 04/04/20 09:53 Dose: 5 mg Documented by: Duloxetine HCl (Cymbalta) 60 mg PO QDAY [facility] Last Admin: 04/04/20 09:53 Dose: 60 mg Documented by: Fish Oil (Fish Oil) 2,000 mg PO BID [facility] Last Admin: 04/04/20 21:15 Dose: 2,000 mg Documented by: Glyburide (Diabeta) 5 mg PO BID [facility] Last Admin: 04/04/20 21:15 Dose: 5 mg Documented by: Hydroxyzine HCl (Atarax) 25 mg PO Q6HR PRN PRN Reason: Itching Hydroxyzine Pamoate (Vistaril) 25 mg PO Q6H PRN PRN Reason: Anxiety Last Admin: 04/04/20 10:34 Dose: 25 mg Documented by: Levothyroxine Sodium (Synthroid) 200 mcg PO DAILY@0600 [facility] Last Admin: 04/05/20 05:24 Dose: 200 mcg Documented by: Melatonin (Melatonin) 5 mg PO QHS PRN PRN Reason: Sleep Last Admin: 04/02/20 22:02 Dose: 5 mg Documented by: Metformin HCl (Glucophage Xr) 1,000 mg PO QDDIAB [facility] Last Admin: 04/04/20 12:31 Dose: 1,000 mg Documented by: Metoprolol Succinate (Metoprolol Xl) 25 mg PO QDAY [facility] Last Admin: 04/04/20 10:55 Dose: 25 mg Documented by: Nitrofurantoin Macrocrystals (Macrobid) 100 mg PO Q12HR [facility] Last Admin: 04/04/20 21:15 Dose: 100 mg Documented by: Oxycodone/Acetaminophen (Percocet 5/325) 1 tab PO Q6H PRN PRN Reason: Pain, Moderate (4-6) Last Admin: 04/04/20 20:04 Dose: 1 tab Documented by: Pantoprazole Sodium (Protonix) 40 mg PO QDAY [facility] Last Admin: 04/04/20 09:53 Dose: 40 mg Documented by: Quetiapine Fumarate (Seroquel) 125 mg PO [facility] Last Admin: 04/04/20 21:15 Dose: 125 mg Documented by: Results - Results Labs/Vitals: Laboratory Last Values WBC 8.9 K/mm3 (4.5-11.0) 04/03/20 11:59 RBC 5.24 M/mm3 (3.65-5.03) H 04/03/20 11:59 Hgb 13.7 gm/dl (10.1-14.3) 04/03/20 11:59 Hct 42.7 % (30.3-42.9) 04/03/20 11:59 MCV 82 fl (79-97) 04/03/20 11:59 MCH 26 pg (28-32) L 04/03/20 11:59 MCHC 32 % (30-34) 04/03/20 11:59 RDW 14.9 % (13.2-15.2) 04/03/20 11:59 Plt Count 170 K/mm3 (140-440) 04/03/20 11:59 Lymph % (Auto) 29.5 % (13.4-35.0) 04/03/20 11:59 [place] % (Auto) 7.2 % (0.0-7.3) 04/03/20 11:59 Eos % (Auto) 1.2 % (0.0-4.3) 04/03/20 11:59 Baso % (Auto) 1.1 % (0.0-1.8) 04/03/20 11:59 Lymph # 2.6 K/mm3 (1.2-5.4) 04/03/20 11:59 [place] # 0.6 K/mm3 (0.0-0.8) 04/03/20 11:59 Eos # 0.1 K/mm3 (0.0-0.4) 04/03/20 11:59 Baso # 0.1 K/mm3 (0.0-0.1) 04/03/20 11:59 Seg Neutrophils % 61.0 % (40.0-70.0) 04/03/20 11:59 Seg Neutrophils # 5.4 K/mm3 (1.8-7.7) 04/03/20 11:59 Sodium 139 mmol/L (137-145) 04/03/20 11:59 Potassium 5.3 mmol/L (3.6-5.0) H 04/03/20 11:59 Chloride 96.8 mmol/L (98-107) L 04/03/20 11:59 Carbon Dioxide 17 mmol/L (22-30) L 04/03/20 11:59 Anion Gap 31 mmol/L 04/03/20 11:59 BUN 13 mg/dL (7-17) 04/03/20 11:59 Creatinine 0.9 mg/dL (0.6-1.2) 04/03/20 11:59 Estimated GFR > 60 ml/min 04/03/20 11:59 BUN/Creatinine Ratio 14 % 04/03/20 11:59 Glucose 315 mg/dL (65-100) H 04/03/20 11:59 POC Glucose 189 (70-105) H 04/05/20 06:33 Hemoglobin A1c 10.9 % (4-6) H 04/03/20 11:59 Calcium 9.9 mg/dL (8.4-10.2) 04/03/20 11:59 Total Bilirubin 0.40 mg/dL (0.1-1.2) 04/03/20 11:59 AST 79 units/L (5-40) H 04/03/20 11:59 ALT 55 units/L (7-56) 04/03/20 11:59 Alkaline Phosphatase 175 units/L (35-129) H 04/03/20 11:59 Total Protein 9.3 g/dL (6.3-8.2) H 04/03/20 11:59 Albumin 4.3 g/dL (3.9-5) 04/03/20 11:59 Albumin/Globulin Ratio 0.9 % 04/03/20 11:59 Triglycerides 181 mg/dL (2-149) H 04/03/20 11:59 Cholesterol 209 mg/dL (50-199) H 04/03/20 11:59 LDL Cholesterol Direct 135 mg/dL (50-130) H 04/03/20 11:59 HDL Cholesterol 58 mg/dL (40-59) 04/03/20 11:59 Cholesterol/HDL Ratio 3.60 % 04/03/20 11:59 TSH 1.670 mlU/mL (0.270-4.200) 04/03/20 11:59 Last Vital Signs Temp 99.0 F 04/04/20 22:00 Pulse 83 09/12/20 22:00 Resp 16 04/04/20 22:00 BP 131/92 04/04/20 22:00 Pulse Ox 96 04/04/20 22:00
[2020-04-05] MEDS: PANTOPRAZOLE 40 MG TAB PO SCH (09:10)
[2020-04-05] MEDS: DULoxetine 30 MG CAP PO SCH (09:10)
[2020-04-05] MEDS: ARIPiprazole 5 MG TAB PO SCH (09:11)
[2020-04-05] MEDS: metFORMIN XR 500MG TAB PO SCH (09:11)
[2020-04-05] MEDS: OMEGA-3 FATTY ACIDS/FISH OIL 1 GRAM CAP PO SCH ×2 (09:11→21:13)
[2020-04-05] MEDS: NITROFURANTOIN MONOHYD/M-CRYST 100 MG CAP PO SCH ×2 (09:11→21:14)
[2020-04-05] MEDS: amLODIPine 5 MG TAB PO SCH (09:11)
[2020-04-05] MEDS: METOPROLOL SUCCINATE XL 25 MG TAB PO SCH (09:12)
[2020-04-05] MEDS: glyBURIDE 5 MG TAB PO SCH ×2 (09:13→20:51)
[2020-04-05] MEDS: oxyCODONE /ACETAMINOPHEN 5-325MG TAB PO PRN ×2 (09:13→18:43)
[2020-04-05] MEDS: ACETAMINOPHEN 325 MG TAB PO PRN (13:39)
[2020-04-05] MEDS: QUEtiapine 25 MG TAB PO SCH (21:13)
[2020-04-06] MEDS: LEVOTHYROXINE 100 MCG TAB PO SCH (06:14)
[2020-04-06] MEDS: oxyCODONE /ACETAMINOPHEN 5-325MG TAB PO PRN ×3 (06:41→21:27)
[2020-04-06] MEDS: glyBURIDE 5 MG TAB PO SCH ×2 (08:12→16:54)
[2020-04-06] MEDS: metFORMIN XR 500MG TAB PO SCH (08:14)
--- NOTE | 2020-04-06 09:37 | Progress Note ---
Subjective Date of service: 04/06/20 Principal diagnosis: Major Depressive Disorder hypertension diabetes chronic pain. Subjective Comment: The patient's medical record was reviewed and the patient's progress was discussed with the nursing staff. During my interview with the patient today, she is sitting in the dayroom. She is a/ x 3. She verbalized her mood being "better." The patient states she's in "a lot of pain." She says, "that's what makes me think about hurting myself." She denies SI/HI at the moment, but states it "comes and goes with the paint." She denies hallucinations of any kind. Reason for continued inpatient treatment: The patient has improved, but still suicidal thoughts on and off. Will continue to stabilize and plan for a safe discharge. REVIEW OF SYSTEMS Constitutional: Negative for weight loss ENT: Negative for stridor Respiratory: Negative for cough or hemoptysis All other systems reviewed and are negative MENTAL STATUS EXAMINATION General Appearance; Dressed appropriately Behavior: Calm and cooperative. Good eye contact Mood: "pretty good" Affect and affective range: Congruent with stated mood Thought Process: Fluent/Logical Thought Content: Within reality Speech: Normal volume, Regular rate and rhythm Suicidal Ideation: Denies at present, comes and goes Homicidal Ideation: Denies HI Hallucinations: Denies Delusions: None elicited Insight and Judgment: Limited Memory/Cognition: Normal Attention: Normal Orientation: Alert, oriented Assessment (1) MDD (major depressive disorder) Current Visit: Yes Status: Acute Treatment Plan Patient will be admitted for inpatient psychiatric evaluation, medication adjustment and close monitoring The patient's behavior, mood, sleep and appetite will be closely monitored. Patient will be enrolled in individual and group therapeutic sessions and encouraged to attend. Patient will be provided with a safe and structured environment. Patient's physical health needs will be addressed by the Hospitalist. Hospitalist Consulted Labs including CBC, CMP, Lipid profile and Hemoglobin A1C ordered Social Assessment will be completed and the Communications Equipment Installer will work with patient and family to ensure a suitable and safe disposition Medication adjustment will be made as clinically indicated Increased Cymbalta 60mg po BID to help with underlying depression and pain Usual Wellness Yazidism/Preservation: - Start Trazodone 50 mg po QHS & 50 mg po QHS PRN between 10 PM & 2 AM for in somnia - Start Melatonin 5 mg po QHS to promote circadian rhythm - Start [place]-3 for brain health, reduce impulsivity, and as adjunctive treatment for mood disorder, continue upon discharge given overall benefits. - Start B1 prophylaxis with 200 mg po for 5 days The patient agreed on the treatment plan, understood the risk, benefit, alternative treatment, potential consequence of no treatment, and gave informed consent. Estimated days: 2 Post hospital care: primary care provider, psychiatric provider Medications and Allergies Allergies Allergy/AdvReac Type Severity Reaction Status Date / Time azithromycin Allergy Itching Verified 04/02/20 17:24 ciprofloxacin Allergy Itching Verified 04/02/20 17:46 clindamycin Allergy Itching Verified 04/02/20 17:24 ketorolac Allergy Itching Verified 04/02/20 17:47 lisinopril Allergy Hives Verified 04/02/20 17:24 morphine Allergy Itching Verified 04/02/20 17:24 Penicillins Allergy Hives Verified 04/02/20 17:24 pentazocine Allergy Itching Verified 04/02/20 17:24 pregabalin Allergy Itching Verified 04/02/20 17:43 sulfamethoxazole Allergy Itching Verified 04/02/20 17:44 trimethoprim Allergy Itching Verified 04/02/20 17:45 Home Medications Medication Instructions Recorded Confirmed Last Taken Type Amlodipine Besylate [Norvasc] 5 mg PO DAILY 04/03/20 04/03/20 Unknown History Levothyroxine Sodium [Synthroid] 200 mcg PO DAILY 04/03/20 04/03/20 Unknown History Metoprolol Xl [Metoprolol 25 mg PO QDAY 04/03/20 04/03/20 Unknown History SUCCINATE ER TAB] QUEtiapine [SEROquel] 25 mg PO DAILY 04/03/20 04/03/20 Unknown History QUEtiapine [SEROquel] 125 mg PO HS 04/03/20 04/03/20 Unknown History glyBURIDE [Diabeta] 5 mg PO BID 04/03/20 04/03/20 Unknown History hydrOXYzine HCL [Atarax] 25 mg PO Q6HR PRN 04/03/20 04/03/20 Unknown History Active Meds: Active Medications Acetaminophen (Tylenol) 650 mg PO Q4H PRN PRN Reason: Pain, Mild (1-3) Last Admin: 04/05/20 13:39 Dose: 650 mg Documented by: Amlodipine Besylate (Amlodipine) 5 mg PO DAILY [facility] Last Admin: 04/05/20 09:11 Dose: 5 mg Documented by: Aripiprazole (Aripiprazole) 5 mg PO QDAY [facility] Last Admin: 04/05/20 09:11 Dose: 5 mg Documented by: Duloxetine HCl (Cymbalta) 60 mg PO QDAY [facility] Last Admin: 04/05/20 09:10 Dose: 60 mg Documented by: Fish Oil (Fish Oil) 2,000 mg PO BID [facility] Last Admin: 04/05/20 21:13 Dose: 2,000 mg Documented by: Glyburide (Diabeta) 5 mg PO BIDDIAB [facility] Last Admin: 04/06/20 08:12 Dose: 5 mg Documented by: Hydroxyzine Pamoate (Vistaril) 25 mg PO Q6H PRN PRN Reason: Anxiety Last Admin: 04/04/20 10:34 Dose: 25 mg Documented by: Levothyroxine Sodium (Synthroid) 200 mcg PO DAILY@0600 [facility] Last Admin: 04/06/20 06:14 Dose: 200 mcg Documented by: Melatonin (Melatonin) 5 mg PO QHS PRN PRN Reason: Sleep Last Admin: 04/02/20 22:02 Dose: 5 mg Documented by: Metformin HCl (Glucophage Xr) 1,000 mg PO QDDIAB [facility] Last Admin: 04/06/20 08:14 Dose: Not Given Documented by: Metoprolol Succinate (Metoprolol Xl) 25 mg PO QDAY [facility] Last Admin: 04/05/20 09:12 Dose: 25 mg Documented by: Nitrofurantoin Macrocrystals (Macrobid) 100 mg PO Q12HR [facility] Last Admin: 04/05/20 21:14 Dose: 100 mg Documented by: Oxycodone/Acetaminophen (Percocet 5/325) 1 tab PO Q6H PRN PRN Reason: Pain, Moderate (4-6) Last Admin: 04/06/20 06:41 Dose: 1 tab Documented by: Pantoprazole Sodium (Protonix) 40 mg PO QDAY [facility] Last Admin: 04/05/20 09:10 Dose: 40 mg Documented by: Quetiapine Fumarate (Seroquel) 125 mg PO [facility] Last Admin: 04/05/20 21:13 Dose: 125 mg Documented by: Results - Results Labs/Vitals: Laboratory Last Values WBC 8.9 K/mm3 (4.5-11.0) 04/03/20 11:59 RBC 5.24 M/mm3 (3.65-5.03) H 04/03/20 11:59 Hgb 13.7 gm/dl (10.1-14.3) 04/03/20 11:59 Hct 42.7 % (30.3-42.9) 04/03/20 11:59 MCV 82 fl (79-97) 04/03/20 11:59 MCH 26 pg (28-32) L 04/03/20 11:59 MCHC 32 % (30-34) 04/03/20 11:59 RDW 14.9 % (13.2-15.2) 04/03/20 11:59 Plt Count 170 K/mm3 (140-440) 04/03/20 11:59 Lymph % (Auto) 29.5 % (13.4-35.0) 04/03/20 11:59 [place] % (Auto) 7.2 % (0.0-7.3) 04/03/20 11:59 Eos % (Auto) 1.2 % (0.0-4.3) 04/03/20 11:59 Baso % (Auto) 1.1 % (0.0-1.8) 04/03/20 11:59 Lymph # 2.6 K/mm3 (1.2-5.4) 04/03/20 11:59 [place] # 0.6 K/mm3 (0.0-0.8) 04/03/20 11:59 Eos # 0.1 K/mm3 (0.0-0.4) 04/03/20 11:59 Baso # 0.1 K/mm3 (0.0-0.1) 04/03/20 11:59 Seg Neutrophils % 61.0 % (40.0-70.0) 04/03/20 11:59 Seg Neutrophils # 5.4 K/mm3 (1.8-7.7) 04/03/20 11:59 Sodium 139 mmol/L (137-145) 04/03/20 11:59 Potassium 5.3 mmol/L (3.6-5.0) H 04/03/20 11:59 Chloride 96.8 mmol/L (98-107) L 04/03/20 11:59 Carbon Dioxide 17 mmol/L (22-30) L 04/03/20 11:59 Anion Gap 31 mmol/L 04/03/20 11:59 BUN 13 mg/dL (7-17) 04/03/20 11:59 Creatinine 0.9 mg/dL (0.6-1.2) 04/03/20 11:59 Estimated GFR > 60 ml/min 04/03/20 11:59 BUN/Creatinine Ratio 14 % 04/03/20 11:59 Glucose 315 mg/dL (65-100) H 04/03/20 11:59 POC Glucose 159 (70-105) H 04/06/20 06:49 Hemoglobin A1c 10.9 % (4-6) H 04/03/20 11:59 Calcium 9.9 mg/dL (8.4-10.2) 04/03/20 11:59 Total Bilirubin 0.40 mg/dL (0.1-1.2) 04/03/20 11:59 AST 79 units/L (5-40) H 04/03/20 11:59 ALT 55 units/L (7-56) 04/03/20 11:59 Alkaline Phosphatase 175 units/L (35-129) H 04/03/20 11:59 Total Protein 9.3 g/dL (6.3-8.2) H 04/03/20 11:59 Albumin 4.3 g/dL (3.9-5) 04/03/20 11:59 Albumin/Globulin Ratio 0.9 % 04/03/20 11:59 Triglycerides 181 mg/dL (2-149) H 04/03/20 11:59 Cholesterol 209 mg/dL (50-199) H 04/03/20 11:59 LDL Cholesterol Direct 135 mg/dL (50-130) H 04/03/20 11:59 HDL Cholesterol 58 mg/dL (40-59) 04/03/20 11:59 Cholesterol/HDL Ratio 3.60 % 04/03/20 11:59 TSH 1.670 mlU/mL (0.270-4.200) 04/03/20 11:59 Last Vital Signs Temp 99.2 F 04/05/20 19:28 Pulse 81 04/05/20 19:28 Resp 20 04/05/20 19:28 BP 151/81 04/05/20 19:28 Pulse Ox 99 04/05/20 19:28
[2020-04-06] MEDS: NITROFURANTOIN MONOHYD/M-CRYST 100 MG CAP PO SCH ×2 (10:00→21:26)
[2020-04-06] MEDS: OMEGA-3 FATTY ACIDS/FISH OIL 1 GRAM CAP PO SCH ×2 (10:00→21:26)
[2020-04-06] MEDS: ARIPiprazole 5 MG TAB PO SCH (10:00)
[2020-04-06] MEDS: amLODIPine 5 MG TAB PO SCH (10:00)
[2020-04-06] MEDS: DULoxetine 30 MG CAP PO SCH ×2 (10:00→21:26)
[2020-04-06] MEDS: PANTOPRAZOLE 40 MG TAB PO SCH (10:01)
[2020-04-06] MEDS: METOPROLOL SUCCINATE XL 25 MG TAB PO SCH (10:01)
[2020-04-06] MEDS: QUEtiapine 25 MG TAB PO SCH (21:26)
[2020-04-07] MEDS: LEVOTHYROXINE 100 MCG TAB PO SCH (06:12)
--- NOTE | 2020-04-07 08:04 | Progress Note ---
Subjective Date of service: 04/07/20 Principal diagnosis: Major Depressive Disorder hypertension diabetes chronic pain. Subjective Comment: The patient's medical record was reviewed and the patient's progress was discussed with the nursing staff. During my interview with the patient today, she is sitting in the dayroom. She is a/ x 3. She verbalized her mood being "better." The patient states she's in "a lot of pain." She says, "that's what makes me think about hurting myself." She denies SI/HI at the moment, but states it "comes and goes with the paint." She denies hallucinations of any kind. Reason for continued inpatient treatment: The patient has improved, but still suicidal thoughts on and off. Will continue to stabilize and plan for a safe discharge. REVIEW OF SYSTEMS Constitutional: Negative for weight loss ENT: Negative for stridor Respiratory: Negative for cough or hemoptysis All other systems reviewed and are negative MENTAL STATUS EXAMINATION General Appearance; Dressed appropriately Behavior: Calm and cooperative. Good eye contact Mood: "pretty good" Affect and affective range: Congruent with stated mood Thought Process: Fluent/Logical Thought Content: Within reality Speech: Normal volume, Regular rate and rhythm Suicidal Ideation: Denies at present, comes and goes Homicidal Ideation: Denies HI Hallucinations: Denies Delusions: None elicited Insight and Judgment: Limited Memory/Cognition: Normal Attention: Normal Orientation: Alert, oriented Assessment (1) MDD (major depressive disorder) Current Visit: Yes Status: Acute Treatment Plan Patient will be admitted for inpatient psychiatric evaluation, medication adjustment and close monitoring The patient's behavior, mood, sleep and appetite will be closely monitored. Patient will be enrolled in individual and group therapeutic sessions and encouraged to attend. Patient will be provided with a safe and structured environment. Patient's physical health needs will be addressed by the Hospitalist. Hospitalist Consulted Labs including CBC, CMP, Lipid profile and Hemoglobin A1C ordered Social Assessment will be completed and the Supervisor Pre Wave will work with patient and family to ensure a suitable and safe disposition Medication adjustment will be made as clinically indicated Increased Cymbalta 60mg po BID to help with underlying depression and pain Usual Wellness Christian/Preservation: - Start Trazodone 50 mg po QHS & 50 mg po QHS PRN between 10 PM & 2 AM for in somnia - Start Melatonin 5 mg po QHS to promote circadian rhythm - Start [place]-3 for brain health, reduce impulsivity, and as adjunctive treatment for mood disorder, continue upon discharge given overall benefits. - Start B1 prophylaxis with 200 mg po for 5 days The patient agreed on the treatment plan, understood the risk, benefit, alternative treatment, potential consequence of no treatment, and gave informed consent. Estimated days: 2 Post hospital care: primary care provider, psychiatric provider Medications and Allergies Allergies Allergy/AdvReac Type Severity Reaction Status Date / Time azithromycin Allergy Itching Verified 04/02/20 17:24 ciprofloxacin Allergy Itching Verified 04/02/20 17:46 clindamycin Allergy Itching Verified 04/02/20 17:24 ketorolac Allergy Itching Verified 04/02/20 17:47 lisinopril Allergy Hives Verified 04/02/20 17:24 morphine Allergy Itching Verified 04/02/20 17:24 Penicillins Allergy Hives Verified 04/02/20 17:24 pentazocine Allergy Itching Verified 04/02/20 17:24 pregabalin Allergy Itching Verified 04/02/20 17:43 sulfamethoxazole Allergy Itching Verified 04/02/20 17:44 trimethoprim Allergy Itching Verified 04/02/20 17:45 Home Medications Medication Instructions Recorded Confirmed Last Taken Type Amlodipine Besylate [Norvasc] 5 mg PO DAILY 04/03/20 04/03/20 Unknown History Levothyroxine Sodium [Synthroid] 200 mcg PO DAILY 04/03/20 04/03/20 Unknown History Metoprolol Xl [Metoprolol 25 mg PO QDAY 04/03/20 04/03/20 Unknown History SUCCINATE ER TAB] QUEtiapine [SEROquel] 25 mg PO DAILY 04/03/20 04/03/20 Unknown History QUEtiapine [SEROquel] 125 mg PO HS 04/03/20 04/03/20 Unknown History glyBURIDE [Diabeta] 5 mg PO BID 04/03/20 04/03/20 Unknown History hydrOXYzine HCL [Atarax] 25 mg PO Q6HR PRN 04/03/20 04/03/20 Unknown History Active Meds: Active Medications Acetaminophen (Tylenol) 650 mg PO Q4H PRN PRN Reason: Pain, Mild (1-3) Last Admin: 04/05/20 13:39 Dose: 650 mg Documented by: Amlodipine Besylate (Amlodipine) 5 mg PO DAILY [facility] Last Admin: 04/06/20 10:00 Dose: 5 mg Documented by: Aripiprazole (Aripiprazole) 5 mg PO QDAY [facility] Last Admin: 04/06/20 10:00 Dose: 5 mg Documented by: Duloxetine HCl (Cymbalta) 60 mg PO BID [facility] Last Admin: 04/06/20 21:26 Dose: 60 mg Documented by: Fish Oil (Fish Oil) 2,000 mg PO BID [facility] Last Admin: 04/06/20 21:26 Dose: 2,000 mg Documented by: Glyburide (Diabeta) 5 mg PO BIDDIAB [facility] Last Admin: 04/06/20 16:54 Dose: 5 mg Documented by: Hydroxyzine Pamoate (Vistaril) 25 mg PO Q6H PRN PRN Reason: Anxiety Last Admin: 04/04/20 10:34 Dose: 25 mg Documented by: Levothyroxine Sodium (Synthroid) 200 mcg PO DAILY@0600 [facility] Last Admin: 04/07/20 06:12 Dose: 200 mcg Documented by: Melatonin (Melatonin) 5 mg PO QHS PRN PRN Reason: Sleep Last Admin: 04/02/20 22:02 Dose: 5 mg Documented by: Metformin HCl (Glucophage Xr) 1,000 mg PO QDDIAB [facility] Last Admin: 04/06/20 08:14 Dose: Not Given Documented by: Metoprolol Succinate (Metoprolol Xl) 25 mg PO QDAY [facility] Last Admin: 04/06/20 10:01 Dose: 25 mg Documented by: Nitrofurantoin Macrocrystals (Macrobid) 100 mg PO Q12HR [facility] Last Admin: 04/06/20 21:26 Dose: 100 mg Documented by: Oxycodone/Acetaminophen (Percocet 5/325) 1 tab PO Q6H PRN PRN Reason: Pain, Moderate (4-6) Last Admin: 04/06/20 21:27 Dose: 1 tab Documented by: Pantoprazole Sodium (Protonix) 40 mg PO QDAY [facility] Last Admin: 04/06/20 10:01 Dose: 40 mg Documented by: Quetiapine Fumarate (Seroquel) 125 mg PO [facility] Last Admin: 04/06/20 21:26 Dose: 125 mg Documented by: Results - Results Labs/Vitals: Laboratory Last Values WBC 8.9 K/mm3 (4.5-11.0) 04/03/20 11:59 RBC 5.24 M/mm3 (3.65-5.03) H 04/03/20 11:59 Hgb 13.7 gm/dl (10.1-14.3) 04/03/20 11:59 Hct 42.7 % (30.3-42.9) 04/03/20 11:59 MCV 82 fl (79-97) 04/03/20 11:59 MCH 26 pg (28-32) L 04/03/20 11:59 MCHC 32 % (30-34) 04/03/20 11:59 RDW 14.9 % (13.2-15.2) 04/03/20 11:59 Plt Count 170 K/mm3 (140-440) 04/03/20 11:59 Lymph % (Auto) 29.5 % (13.4-35.0) 04/03/20 11:59 [place] % (Auto) 7.2 % (0.0-7.3) 04/03/20 11:59 Eos % (Auto) 1.2 % (0.0-4.3) 04/03/20 11:59 Baso % (Auto) 1.1 % (0.0-1.8) 04/03/20 11:59 Lymph # 2.6 K/mm3 (1.2-5.4) 04/03/20 11:59 [place] # 0.6 K/mm3 (0.0-0.8) 04/03/20 11:59 Eos # 0.1 K/mm3 (0.0-0.4) 04/03/20 11:59 Baso # 0.1 K/mm3 (0.0-0.1) 04/03/20 11:59 Seg Neutrophils % 61.0 % (40.0-70.0) 04/03/20 11:59 Seg Neutrophils # 5.4 K/mm3 (1.8-7.7) 04/03/20 11:59 Sodium 139 mmol/L (137-145) 04/03/20 11:59 Potassium 5.3 mmol/L (3.6-5.0) H 04/03/20 11:59 Chloride 96.8 mmol/L (98-107) L 04/03/20 11:59 Carbon Dioxide 17 mmol/L (22-30) L 04/03/20 11:59 Anion Gap 31 mmol/L 04/03/20 11:59 BUN 13 mg/dL (7-17) 04/03/20 11:59 Creatinine 0.9 mg/dL (0.6-1.2) 04/03/20 11:59 Estimated GFR > 60 ml/min 04/03/20 11:59 BUN/Creatinine Ratio 14 % 04/03/20 11:59 Glucose 315 mg/dL (65-100) H 04/03/20 11:59 POC Glucose 162 (70-105) H 04/07/20 07:32 Hemoglobin A1c 10.9 % (4-6) H 04/03/20 11:59 Calcium 9.9 mg/dL (8.4-10.2) 04/03/20 11:59 Total Bilirubin 0.40 mg/dL (0.1-1.2) 04/03/20 11:59 AST 79 units/L (5-40) H 04/03/20 11:59 ALT 55 units/L (7-56) 04/03/20 11:59 Alkaline Phosphatase 175 units/L (35-129) H 04/03/20 11:59 Total Protein 9.3 g/dL (6.3-8.2) H 04/03/20 11:59 Albumin 4.3 g/dL (3.9-5) 04/03/20 11:59 Albumin/Globulin Ratio 0.9 % 04/03/20 11:59 Triglycerides 181 mg/dL (2-149) H 04/03/20 11:59 Cholesterol 209 mg/dL (50-199) H 04/03/20 11:59 LDL Cholesterol Direct 135 mg/dL (50-130) H 04/03/20 11:59 HDL Cholesterol 58 mg/dL (40-59) 04/03/20 11:59 Cholesterol/HDL Ratio 3.60 % 04/03/20 11:59 TSH 1.670 mlU/mL (0.270-4.200) 04/03/20 11:59 Last Vital Signs Temp 98.7 F 04/07/20 07:17 Pulse 92 H 04/07/20 07:17 Resp 18 04/07/20 07:17 BP 126/72 04/07/20 07:17 Pulse Ox 95 04/07/20 07:17
--- NOTE | 2020-04-07 08:08 | Progress Note ---
Subjective Date of service: 04/07/20 Principal diagnosis: Major Depressive Disorder hypertension diabetes chronic pain. Subjective Comment: The patient's medical record was reviewed and the patient's progress was discussed with the nursing staff. During my interview with the patient today, she is sitting in the dayroom. She is a/ x 3. She is calm and cooperative. She is asking about her zanaflex. The patient states she "needs it to help with my pain." She denies hallucinations of any kind. She also denies SI/HI at present. She states "not right now, I feel okay. Before it was because of the pain." She then says, "like I told them before, it seems to come and go." Reason for continued inpatient treatment: The patient has improved significantly. Will continue to stabilize on current medication regiment and plan for a safe discharge tomorrow. REVIEW OF SYSTEMS Constitutional: Negative for weight loss ENT: Negative for stridor Respiratory: Negative for cough or hemoptysis All other systems reviewed and are negative MENTAL STATUS EXAMINATION General Appearance; Dressed appropriately Behavior: Calm and cooperative. Good eye contact Mood: "pretty good" Affect and affective range: Congruent with stated mood Thought Process: Fluent/Logical Thought Content: Within reality Speech: Normal volume, Regular rate and rhythm Suicidal Ideation: Denies at present, comes and goes Homicidal Ideation: Denies HI Hallucinations: Denies Delusions: None elicited Insight and Judgment: Limited Memory/Cognition: Normal Attention: Normal Orientation: Alert, oriented Assessment (1) MDD (major depressive disorder) Current Visit: Yes Status: Acute Treatment Plan Patient will be admitted for inpatient psychiatric evaluation, medication adjustment and close monitoring The patient's behavior, mood, sleep and appetite will be closely monitored. Patient will be enrolled in individual and group therapeutic sessions and encouraged to attend. Patient will be provided with a safe and structured environment. Patient's physical health needs will be addressed by the Hospitalist. Hospitalist Consulted Labs including CBC, CMP, Lipid profile and Hemoglobin A1C ordered Social Assessment will be completed and the Clam Shucker will work with patient and family to ensure a suitable and safe disposition Medication adjustment will be made as clinically indicated Increased Cymbalta 60mg po BID to help with underlying depression and pain yesterday Started Zanaflex 4mg po BID prn muscle spasms Usual Wellness Advent/Preservation: - Start Trazodone 50 mg po QHS & 50 mg po QHS PRN between 10 PM & 2 AM for insomnia - Start Melatonin 5 mg po QHS to promote circadian rhythm - Start [place]-3 for brain health, reduce impulsivity, and as adjunctive treatment for mood disorder, continue upon discharge given overall benefits. - Start B1 prophylaxis with 200 mg po for 5 days The patient agreed on the treatment plan, understood the risk, benefit, alternative treatment, potential consequence of no treatment, and gave informed consent. Estimated days: 1 Post hospital care: primary care provider, psychiatric provider Medications and Allergies Allergies Allergy/AdvReac Type Severity Reaction Status Date / Time azithromycin Allergy Itching Verified 04/02/20 17:24 ciprofloxacin Allergy Itching Verified 04/02/20 17:46 clindamycin Allergy Itching Verified 04/02/20 17:24 ketorolac Allergy Itching Verified 04/02/20 17:47 lisinopril Allergy Hives Verified 04/02/20 17:24 morphine Allergy Itching Verified 04/02/20 17:24 Penicillins Allergy Hives Verified 04/02/20 17:24 pentazocine Allergy Itching Verified 04/02/20 17:24 pregabalin Allergy Itching Verified 04/02/20 17:43 sulfamethoxazole Allergy Itching Verified 04/02/20 17:44 trimethoprim Allergy Itching Verified 04/02/20 17:45 Home Medications Medication Instructions Recorded Confirmed Last Taken Type Amlodipine Besylate [Norvasc] 5 mg PO DAILY 04/03/20 04/03/20 Unknown History Levothyroxine Sodium [Synthroid] 200 mcg PO DAILY 04/03/20 04/03/20 Unknown History Metoprolol Xl [Metoprolol 25 mg PO QDAY 04/03/20 04/03/20 Unknown History SUCCINATE ER TAB] QUEtiapine [SEROquel] 25 mg PO DAILY 04/03/20 04/03/20 Unknown History QUEtiapine [SEROquel] 125 mg PO HS 04/03/20 04/03/20 Unknown History glyBURIDE [Diabeta] 5 mg PO BID 04/03/20 04/03/20 Unknown History hydrOXYzine HCL [Atarax] 25 mg PO Q6HR PRN 04/03/20 04/03/20 Unknown History Active Meds: Active Medications Acetaminophen (Tylenol) 650 mg PO Q4H PRN PRN Reason: Pain, Mild (1-3) Last Admin: 04/05/20 13:39 Dose: 650 mg Documented by: Amlodipine Besylate (Amlodipine) 5 mg PO DAILY [facility] Last Admin: 04/06/20 10:00 Dose: 5 mg Documented by: Aripiprazole (Aripiprazole) 5 mg PO QDAY [facility] Last Admin: 04/06/20 10:00 Dose: 5 mg Documented by: Duloxetine HCl (Cymbalta) 60 mg PO BID [facility] Last Admin: 04/06/20 21:26 Dose: 60 mg Documented by: Fish Oil (Fish Oil) 2,000 mg PO BID [facility] Last Admin: 04/06/20 21:26 Dose: 2,000 mg Documented by: Glyburide (Diabeta) 5 mg PO BIDDIAB [facility] Last Admin: 04/06/20 16:54 Dose: 5 mg Documented by: Hydroxyzine Pamoate (Vistaril) 25 mg PO Q6H PRN PRN Reason: Anxiety Last Admin: 04/04/20 10:34 Dose: 25 mg Documented by: Levothyroxine Sodium (Synthroid) 200 mcg PO DAILY@0600 [facility] Last Admin: 04/07/20 06:12 Dose: 200 mcg Documented by: Melatonin (Melatonin) 5 mg PO QHS PRN PRN Reason: Sleep Last Admin: 04/02/20 22:02 Dose: 5 mg Documented by: Metformin HCl (Glucophage Xr) 1,000 mg PO QDDIAB [facility] Last Admin: 04/06/20 08:14 Dose: Not Given Documented by: Metoprolol Succinate (Metoprolol Xl) 25 mg PO QDAY [facility] Last Admin: 04/06/20 10:01 Dose: 25 mg Documented by: Nitrofurantoin Macrocrystals (Macrobid) 100 mg PO Q12HR [facility] Last Admin: 04/06/20 21:26 Dose: 100 mg Documented by: Oxycodone/Acetaminophen (Percocet 5/325) 1 tab PO Q6H PRN PRN Reason: Pain, Moderate (4-6) Last Admin: 04/06/20 21:27 Dose: 1 tab Documented by: Pantoprazole Sodium (Protonix) 40 mg PO QDAY [facility] Last Admin: 04/06/20 10:01 Dose: 40 mg Documented by: Quetiapine Fumarate (Seroquel) 125 mg PO [facility] Last Admin: 04/06/20 21:26 Dose: 125 mg Documented by: Results - Results Labs/Vitals: Laboratory Last Values WBC 8.9 K/mm3 (4.5-11.0) 04/03/20 11:59 RBC 5.24 M/mm3 (3.65-5.03) H 04/03/20 11:59 Hgb 13.7 gm/dl (10.1-14.3) 04/03/20 11:59 Hct 42.7 % (30.3-42.9) 04/03/20 11:59 MCV 82 fl (79-97) 04/03/20 11:59 MCH 26 pg (28-32) L 04/03/20 11:59 MCHC 32 % (30-34) 04/03/20 11:59 RDW 14.9 % (13.2-15.2) 04/03/20 11:59 Plt Count 170 K/mm3 (140-440) 04/03/20 11:59 Lymph % (Auto) 29.5 % (13.4-35.0) 04/03/20 11:59 [place] % (Auto) 7.2 % (0.0-7.3) 04/03/20 11:59 Eos % (Auto) 1.2 % (0.0-4.3) 04/03/20 11:59 Baso % (Auto) 1.1 % (0.0-1.8) 04/03/20 11:59 Lymph # 2.6 K/mm3 (1.2-5.4) 04/03/20 11:59 [place] # 0.6 K/mm3 (0.0-0.8) 04/03/20 11:59 Eos # 0.1 K/mm3 (0.0-0.4) 04/03/20 11:59 Baso # 0.1 K/mm3 (0.0-0.1) 04/03/20 11:59 Seg Neutrophils % 61.0 % (40.0-70.0) 04/03/20 11:59 Seg Neutrophils # 5.4 K/mm3 (1.8-7.7) 04/03/20 11:59 Sodium 139 mmol/L (137-145) 04/03/20 11:59 Potassium 5.3 mmol/L (3.6-5.0) H 04/03/20 11:59 Chloride 96.8 mmol/L (98-107) L 04/03/20 11:59 Carbon Dioxide 17 mmol/L (22-30) L 04/03/20 11:59 Anion Gap 31 mmol/L 04/03/20 11:59 BUN 13 mg/dL (7-17) 04/03/20 11:59 Creatinine 0.9 mg/dL (0.6-1.2) 04/03/20 11:59 Estimated GFR > 60 ml/min 04/03/20 11:59 BUN/Creatinine Ratio 14 % 04/03/20 11:59 Glucose 315 mg/dL (65-100) H 04/03/20 11:59 POC Glucose 162 (70-105) H 04/07/20 07:32 Hemoglobin A1c 10.9 % (4-6) H 04/03/20 11:59 Calcium 9.9 mg/dL (8.4-10.2) 04/03/20 11:59 Total Bilirubin 0.40 mg/dL (0.1-1.2) 04/03/20 11:59 AST 79 units/L (5-40) H 04/03/20 11:59 ALT 55 units/L (7-56) 04/03/20 11:59 Alkaline Phosphatase 175 units/L (35-129) H 04/03/20 11:59 Total Protein 9.3 g/dL (6.3-8.2) H 04/03/20 11:59 Albumin 4.3 g/dL (3.9-5) 04/03/20 11:59 Albumin/Globulin Ratio 0.9 % 04/03/20 11:59 Triglycerides 181 mg/dL (2-149) H 04/03/20 11:59 Cholesterol 209 mg/dL (50-199) H 04/03/20 11:59 LDL Cholesterol Direct 135 mg/dL (50-130) H 04/03/20 11:59 HDL Cholesterol 58 mg/dL (40-59) 04/03/20 11:59 Cholesterol/HDL Ratio 3.60 % 04/03/20 11:59 TSH 1.670 mlU/mL (0.270-4.200) 04/03/20 11:59 Last Vital Signs Temp 98.7 F 04/07/20 07:17 Pulse 92 H 04/07/20 07:17 Resp 18 04/07/20 07:17 BP 126/72 04/07/20 07:17 Pulse Ox 95 04/07/20 07:17
[2020-04-07] MEDS: oxyCODONE /ACETAMINOPHEN 5-325MG TAB PO PRN ×2 (08:12→18:44)
[2020-04-07] MEDS: glyBURIDE 5 MG TAB PO SCH ×2 (08:12→16:40)
[2020-04-07] MEDS: metFORMIN XR 500MG TAB PO SCH (08:15)
[2020-04-07] MEDS: METOPROLOL SUCCINATE XL 25 MG TAB PO SCH (09:08)
[2020-04-07] MEDS: DULoxetine 30 MG CAP PO SCH ×2 (09:08→21:29)
[2020-04-07] MEDS: ARIPiprazole 5 MG TAB PO SCH (09:09)
[2020-04-07] MEDS: PANTOPRAZOLE 40 MG TAB PO SCH (09:09)
[2020-04-07] MEDS: OMEGA-3 FATTY ACIDS/FISH OIL 1 GRAM CAP PO SCH ×2 (09:09→21:29)
[2020-04-07] MEDS: amLODIPine 5 MG TAB PO SCH (09:09)
[2020-04-07] MEDS: NITROFURANTOIN MONOHYD/M-CRYST 100 MG CAP PO SCH ×2 (09:09→21:29)
[2020-04-07] MEDS: tiZANidine TAB 4 MG TAB PO PRN (13:48)
[2020-04-07] MEDS: QUEtiapine 25 MG TAB PO SCH (21:29)
[2020-04-08] MEDS: tiZANidine TAB 4 MG TAB PO PRN ×2 (03:02→18:59)
[2020-04-08] MEDS: LEVOTHYROXINE 100 MCG TAB PO SCH (05:37)
--- NOTE | 2020-04-08 08:12 | Discharge Summary ---
Providers - Providers Date of Admission: 04/02/20 21:15 Date of discharge: 04/08/20 Attending physician: MACARIO LIMA MD 04/02/20 16:03 Consult to Physician [CONS] Routine Comment: Consulting Provider: JORDAN BRAXTON Physician Instructions: Reason For Exam: medical management Primary care physician: [employer] Hospitalization Reason for admission: SI Admitting Diagnosis: F33.2 - MAJOR DEPRESSV DISORDER, RECURRENT SEVERE W/O PSYCH FEATURES Hospital course: The patient was provided inpatient psychiatric treatment with safe and supportive care, medication adjustment, adverse effect monitoring, medical evaluations, medical treatments, assessment and psycho-education. The patient's mood, cognition, behavior, moral support are improved and stabilized. St the time of discharge, the patient had no endangering behavior and no debilitating adverse effects. The patient agreed on potential consequences of no treatment and gave informed consent. Disposition: DC-01 TO HOME OR SELFCARE Time spent for discharge: 38 Allergies/Adverse Reactions: Allergies azithromycin Allergy (Verified 04/02/20 17:24) Itching ciprofloxacin Allergy (Verified 04/02/20 17:46) Itching [ FROM CIPRO] clindamycin Allergy (Verified 04/02/20 17:24) Itching ketorolac Allergy (Verified 04/02/20 17:47) Itching [ FROM TORADOL] lisinopril Allergy (Verified 04/02/20 17:24) Hives morphine Allergy (Verified 04/02/20 17:24) Itching Penicillins Allergy (Verified 04/02/20 17:24) Hives pentazocine Allergy (Verified 04/02/20 17:24) Itching [ FROM TALWIN] pregabalin Allergy (Verified 04/02/20 17:43) Itching [ FROM LYRICA] sulfamethoxazole Allergy (Verified 04/02/20 17:44) Itching [ FROM BACTRIM] trimethoprim Allergy (Verified 04/02/20 17:45) Itching [ FROM BACTRIM] Vital Signs: Last Vital Signs Temp 99.0 F 04/07/20 19:43 Pulse 79 04/07/20 19:43 Resp 16 04/07/20 19:43 BP 136/82 04/07/20 19:43 Pulse Ox 98 04/07/20 19:43 Last Lab: Laboratory Last Values WBC 8.9 K/mm3 (4.5-11.0) 04/03/20 11:59 RBC 5.24 M/mm3 (3.65-5.03) H 04/03/20 11:59 Hgb 13.7 gm/dl (10.1-14.3) 04/03/20 11:59 Hct 42.7 % (30.3-42.9) 04/03/20 11:59 MCV 82 fl (79-97) 04/03/20 11:59 MCH 26 pg (28-32) L 04/03/20 11:59 MCHC 32 % (30-34) 04/03/20 11:59 RDW 14.9 % (13.2-15.2) 04/03/20 11:59 Plt Count 170 K/mm3 (140-440) 04/03/20 11:59 Lymph % (Auto) 29.5 % (13.4-35.0) 04/03/20 11:59 [place] % (Auto) 7.2 % (0.0-7.3) 04/03/20 11:59 Eos % (Auto) 1.2 % (0.0-4.3) 04/03/20 11:59 Baso % (Auto) 1.1 % (0.0-1.8) 04/03/20 11:59 Lymph # 2.6 K/mm3 (1.2-5.4) 04/03/20 11:59 [place] # 0.6 K/mm3 (0.0-0.8) 04/03/20 11:59 Eos # 0.1 K/mm3 (0.0-0.4) 04/03/20 11:59 Baso # 0.1 K/mm3 (0.0-0.1) 04/03/20 11:59 Seg Neutrophils % 61.0 % (40.0-70.0) 04/03/20 11:59 Seg Neutrophils # 5.4 K/mm3 (1.8-7.7) 04/03/20 11:59 Sodium 139 mmol/L (137-145) 04/03/20 11:59 Potassium 5.3 mmol/L (3.6-5.0) H 04/03/20 11:59 Chloride 96.8 mmol/L (98-107) L 04/03/20 11:59 Carbon Dioxide 17 mmol/L (22-30) L 04/03/20 11:59 Anion Gap 31 mmol/L 04/03/20 11:59 BUN 13 mg/dL (7-17) 04/03/20 11:59 Creatinine 0.9 mg/dL (0.6-1.2) 04/03/20 11:59 Estimated GFR > 60 ml/min 04/03/20 11:59 BUN/Creatinine Ratio 14 % 04/03/20 11:59 Glucose 315 mg/dL (65-100) H 04/03/20 11:59 POC Glucose 220 (70-105) H 04/08/20 07:53 Hemoglobin A1c 10.9 % (4-6) H 04/03/20 11:59 Calcium 9.9 mg/dL (8.4-10.2) 04/03/20 11:59 Total Bilirubin 0.40 mg/dL (0.1-1.2) 04/03/20 11:59 AST 79 units/L (5-40) H 04/03/20 11:59 ALT 55 units/L (7-56) 04/03/20 11:59 Alkaline Phosphatase 175 units/L (35-129) H 04/03/20 11:59 Total Protein 9.3 g/dL (6.3-8.2) H 04/03/20 11:59 Albumin 4.3 g/dL (3.9-5) 04/03/20 11:59 Albumin/Globulin Ratio 0.9 % 04/03/20 11:59 Triglycerides 181 mg/dL (2-149) H 04/03/20 11:59 Cholesterol 209 mg/dL (50-199) H 04/03/20 11:59 LDL Cholesterol Direct 135 mg/dL (50-130) H 04/03/20 11:59 HDL Cholesterol 58 mg/dL (40-59) 04/03/20 11:59 Cholesterol/HDL Ratio 3.60 % 04/03/20 11:59 TSH 1.670 mlU/mL (0.270-4.200) 04/03/20 11:59 Core Measure Documentation - Palliative Care Palliative Care/ Comfort Measures: Not Applicable - Core Measures Any of the following diagnoses?: none Exam - Constitutional Vitals: Temp Pulse Resp BP Pulse Ox 99.0 F 79 16 136/82 98 04/07/20 19:43 04/07/20 19:43 04/07/20 19:43 04/07/20 19:43 04/07/20 19:43 General appearance: Present: no acute distress - EENT Eyes: Present: PERRL, EOM intact ENT: hearing intact, clear oral mucosa - Neck Neck: Present: supple, normal ROM - Respiratory Respiratory effort: normal Plan Activity: advance as tolerated Weight Bearing Status: Weight Bear as Tolerated Care Plan Goals: maintain good and stable mental health Plan of Treatment: The patient should be compliant with medications, not to use drugs, and not to drink alcohol. The patient understands that if suicidal ideas, homicidal ideas or any endangering feeling arise, the patient should seek assistance including, but not limited to crisis hotline, and emergency room. Health Concerns: DM Assessment: Major Depressive Disorder, Severe w/o Psychotic Features At the the time of assessment, the patient was calm and cooperative. She denies SI/HI or hallucinations of any kind. Follow up with: PRIMARY CARE, [Primary Care Provider] - 7 Days Prescriptions: ARIPiprazole 5 mg PO QDAY #30 tablet DULoxetine [Cymbalta] 60 mg PO BID #60 capsule [place]-3 Fatty Acids/Fish Oil [Fish Oil] 2,000 mg PO BID #120 capsule metFORMIN XR [Glucophage XR] 1,000 mg PO QDDIAB #60 tablet Pantoprazole [Protonix TAB] 40 mg PO QDAY #30 tablet hydrOXYzine PAMOATE [Vistaril] 25 mg PO BID PRN #60 capsule PRN Reason: Anxiety tiZANidine [Zanaflex 4mg TAB] 4 mg PO BID PRN #60 tablet PRN Reason: Muscle Spasm
[2020-04-08] MEDS: DULoxetine 30 MG CAP PO SCH (10:32)
[2020-04-08] MEDS: NITROFURANTOIN MONOHYD/M-CRYST 100 MG CAP PO SCH (10:32)
[2020-04-08] MEDS: ARIPiprazole 5 MG TAB PO SCH (10:32)
[2020-04-08] MEDS: amLODIPine 5 MG TAB PO SCH (10:32)
[2020-04-08] MEDS: metFORMIN XR 500MG TAB PO SCH ×2 (10:33→13:55)
[2020-04-08] MEDS: oxyCODONE /ACETAMINOPHEN 5-325MG TAB PO PRN ×2 (10:33→15:49)
[2020-04-08 10:34] VITALS: BP 125/73
[2020-04-08] MEDS: glyBURIDE 5 MG TAB PO SCH ×2 (10:34→17:11)
[2020-04-08] MEDS: METOPROLOL SUCCINATE XL 25 MG TAB PO SCH (10:34)
[2020-04-08] MEDS: OMEGA-3 FATTY ACIDS/FISH OIL 1 GRAM CAP PO SCH (10:34)
[2020-04-08] MEDS: PANTOPRAZOLE 40 MG TAB PO SCH (10:38)
--- NOTE | 2020-04-08 18:53 | Progress Note ---
Hospitalist Physical - Constitutional Vitals: Temp Pulse Resp BP Pulse Ox 98.0 F 77 18 125/73 96 04/08/20 07:43 04/08/20 07:43 04/08/20 07:43 04/08/20 10:34 04/08/20 07:43 General appearance: Present: no acute distress Results - Labs CBC & Chem 7: 04/03/20 11:59 04/03/20 11:59 Labs: Laboratory Last Values WBC 8.9 K/mm3 (4.5-11.0) 04/03/20 11:59 RBC 5.24 M/mm3 (3.65-5.03) H 04/03/20 11:59 Hgb 13.7 gm/dl (10.1-14.3) 04/03/20 11:59 Hct 42.7 % (30.3-42.9) 04/03/20 11:59 MCV 82 fl (79-97) 04/03/20 11:59 MCH 26 pg (28-32) L 04/03/20 11:59 MCHC 32 % (30-34) 04/03/20 11:59 RDW 14.9 % (13.2-15.2) 04/03/20 11:59 Plt Count 170 K/mm3 (140-440) 04/03/20 11:59 Lymph % (Auto) 29.5 % (13.4-35.0) 04/03/20 11:59 [place] % (Auto) 7.2 % (0.0-7.3) 04/03/20 11:59 Eos % (Auto) 1.2 % (0.0-4.3) 04/03/20 11:59 Baso % (Auto) 1.1 % (0.0-1.8) 04/03/20 11:59 Lymph # 2.6 K/mm3 (1.2-5.4) 04/03/20 11:59 [place] # 0.6 K/mm3 (0.0-0.8) 04/03/20 11:59 Eos # 0.1 K/mm3 (0.0-0.4) 04/03/20 11:59 Baso # 0.1 K/mm3 (0.0-0.1) 04/03/20 11:59 Seg Neutrophils % 61.0 % (40.0-70.0) 04/03/20 11:59 Seg Neutrophils # 5.4 K/mm3 (1.8-7.7) 04/03/20 11:59 Sodium 139 mmol/L (137-145) 04/03/20 11:59 Potassium 5.3 mmol/L (3.6-5.0) H 04/03/20 11:59 Chloride 96.8 mmol/L (98-107) L 04/03/20 11:59 Carbon Dioxide 17 mmol/L (22-30) L 04/03/20 11:59 Anion Gap 31 mmol/L 04/03/20 11:59 BUN 13 mg/dL (7-17) 04/03/20 11:59 Creatinine 0.9 mg/dL (0.6-1.2) 04/03/20 11:59 Estimated GFR > 60 ml/min 04/03/20 11:59 BUN/Creatinine Ratio 14 % 04/03/20 11:59 Glucose 315 mg/dL (65-100) H 04/03/20 11:59 POC Glucose 252 (70-105) H 04/08/20 16:52 Hemoglobin A1c 10.9 % (4-6) H 04/03/20 11:59 Calcium 9.9 mg/dL (8.4-10.2) 04/03/20 11:59 Total Bilirubin 0.40 mg/dL (0.1-1.2) 04/03/20 11:59 AST 79 units/L (5-40) H 04/03/20 11:59 ALT 55 units/L (7-56) 04/03/20 11:59 Alkaline Phosphatase 175 units/L (35-129) H 04/03/20 11:59 Total Protein 9.3 g/dL (6.3-8.2) H 04/03/20 11:59 Albumin 4.3 g/dL (3.9-5) 04/03/20 11:59 Albumin/Globulin Ratio 0.9 % 04/03/20 11:59 Triglycerides 181 mg/dL (2-149) H 04/03/20 11:59 Cholesterol 209 mg/dL (50-199) H 04/03/20 11:59 LDL Cholesterol Direct 135 mg/dL (50-130) H 04/03/20 11:59 HDL Cholesterol 58 mg/dL (40-59) 04/03/20 11:59 Cholesterol/HDL Ratio 3.60 % 04/03/20 11:59 TSH 1.670 mlU/mL (0.270-4.200) 04/03/20 11:59 Hernandez/IV: Voiding Method Toilet Active Medications - Current Medications Current Medications: Generic Name Dose Route Start Last Admin Trade Name Freq PRN Reason Stop Dose Admin Acetaminophen 650 mg 04/02/20 16:12 04/05/20 13:39 Tylenol PO 650 mg Q4H PRN Administration Pain, Mild (1-3) Amlodipine Besylate 5 mg 04/04/20 10:00 04/08/20 10:32 Amlodipine PO 5 mg DAILY JOSE MANUEL Administration Aripiprazole 5 mg 04/03/20 10:00 04/08/20 10:32 Aripiprazole PO 5 mg QDAY JOSE MANUEL Administration Duloxetine HCl 60 mg 04/06/20 10:00 04/08/20 10:32 Cymbalta PO 60 mg BID JOSE MANUEL Administration Fish Oil 2,000 mg 04/02/20 22:00 04/08/20 10:34 Fish Oil PO 2,000 mg BID JOSE MANUEL Administration Glyburide 5 mg 04/05/20 20:00 04/08/20 17:11 Diabeta PO 5 mg BIDDIAB JOSE MANUEL Administration Hydroxyzine Pamoate 25 mg 04/03/20 08:00 04/04/20 10:34 Vistaril PO 25 mg Q6H PRN Administration Anxiety Levothyroxine Sodium 200 mcg 04/04/20 06:00 04/08/20 05:37 Synthroid PO 200 mcg DAILY@0600 JOSE MANUEL Administration Melatonin 5 mg 04/02/20 16:11 04/02/20 22:02 Melatonin PO 5 mg QHS PRN Administration Sleep Metformin HCl 1,000 mg 04/04/20 13:00 04/08/20 13:55 Glucophage Xr PO Not Given QDDIAB JOSE MANUEL Metoprolol Succinate 25 mg 04/04/20 10:00 04/08/20 10:34 Metoprolol Xl PO 25 mg QDAY JOSE MANUEL Administration Nitrofurantoin Macrocrystals 100 mg 04/04/20 13:00 04/08/20 10:32 Macrobid PO 100 mg Q12HR JOSE MANUEL Administration Oxycodone/Acetaminophen 1 tab 04/04/20 12:14 04/08/20 15:49 Percocet 5/325 PO 1 tab Q6H PRN Administration Pain, Moderate (4-6) Pantoprazole Sodium 40 mg 04/04/20 10:00 04/08/20 10:38 Protonix PO 40 mg QDAY JOSE MANUEL Administration Quetiapine Fumarate 125 mg 04/04/20 22:00 04/07/20 21:29 Seroquel PO 125 mg HS JOSE MANUEL Administration Tizanidine HCl 4 mg 04/07/20 08:08 04/08/20 03:02 Zanaflex PO 4 mg BID PRN Administration Muscle Spasm
== END 2020-04-08 19:19 | disposition home or self-care (01) | DRG 885 ==
LOC: UNDOADMIN 15:00 → 3A 15:00 → 5A 21:15
PROVIDERS: ADMIT Psychiatry & Neurology Psychiatry; ATTEND Psychiatry & Neurology Psychiatry
DX: F32.2 Major depressive disorder, single episode, severe without psychotic features (principal); F32.9 Major depressive disorder, single episode, unspecified; I10 Essential (primary) hypertension; E13.9 Other specified diabetes mellitus without complications; E03.9 Hypothyroidism, unspecified; G89.29 Other chronic pain; G43.909 Migraine, unspecified, not intractable, without status migrainosus; E66.9 Obesity, unspecified; Z68.35 Body mass index [BMI] 35.0-35.9, adult
CPT/HCPCS: 36415; 80053; 80061; 82962; 83036; 84443; 85025; G0378; Q0177